=== PATIENT | male | born 1960 | race Caucasian/White ===

== ENCOUNTER → 2016-11-19 | Outpatient (CLI) | payer BC, OTHER ==
[~2016-11-19] MED LIST: ACT30 PO; ASPEC325 PO; ASPI325T45 PO; BACL10TA PO; BUPRTAB51 PO; CALCTAB7 PO; CLR10 PO; ESCI1TAB10 PO; HMLI SC; HYDR-3983 PO; HYDR-5688 PO; IBUP1CAP9 PO; INSU100I SQ; INSU1INJ33 SC; INSUINJ12 SC; KETO10TA PO; LOSA1TAB38 PO; LRS10 PO; MCLIN; MCLIN NAE; METF1000 PO; PANT1TAB48 PO; PRD5 PO; PRED-301 PO; PRED20TA PO; ROSU40TA PO; ZNF4 PO
--- NOTE | 2016-11-19 09:39 | DIAGNOSTIC IMAGING REPORT ---
LUMBAR SPINE 5 VIEWS HISTORY: LOWER BACK PAIN COMPARISON: None. FINDINGS: There is no fracture. No subluxation. Disc spaces are preserved. Dextroscoliosis which could be positional. A few small endplate osteophytes. Minimal anterior wedging at T12 and L1 which could be chronic. IMPRESSION: 1. Minimal degenerative changes. 2. Minimal anterior wedging at T12 and L1 which is likely chronic. No definite acute fracture or subluxation within the lumbar spine. Electronically signed by: Errol Vegas M.D. 11/19/2016 9:38 AM Dictated Date/Time: 11/19/2016 9:37 AM
== END | disposition home or self-care (01) ==
LOC: C.RADBC 09:09
PROVIDERS: ATTEND Nurse Practitioner Adult Health
DX: S39.012A Strain of muscle, fascia and tendon of lower back, initial encounter (principal); M89.8X8 Other specified disorders of bone, other site; X58.XXXA Exposure to other specified factors, initial encounter

== ENCOUNTER 2016-11-21 11:45 | Observation (INO) | payer OTHER ==
[~2016-11-21] VITALS: Ht 175.3 cm; Wt 106.0 kg
[~2016-11-21 11:45] MED LIST changes: -ASPI325T45 PO; -BACL10TA PO; -CALCTAB7 PO; -CLR10 PO; -HYDR-3983 PO; -HYDR-5688 PO; -IBUP1CAP9 PO; -INSU100I SQ; -INSU1INJ33 SC; -KETO10TA PO; -LRS10 PO; -MCLIN; -MCLIN NAE; -PRD5 PO; -PRED-301 PO; -ZNF4 PO
[2016-11-21] MEDS ORDERED: IBUP1CAP9 PO (12:00)
[2016-11-21] MEDS ORDERED: ASPI325T45 PO (12:00)
[2016-11-21] MEDS ORDERED: ZNF4 PO (12:01)
[2016-11-21] MEDS ORDERED: INSU100I SQ (12:01)
[2016-11-21] MEDS ORDERED: INSU1INJ33 SC (12:03)
[2016-11-21] MEDS ORDERED: MoRPHine SULFATE 10 MG/ML CARP/VIAL IM STA (12:10)
[2016-11-21] MEDS ORDERED: ONDANSETRON 4MG OD TAB PO ONE (12:15)
[2016-11-21] MEDS ORDERED: MoRPHine SULFATE 4 MG/ML 1 ML CARP\\VIAL IV STA (12:26)
--- NOTE | 2016-11-21 12:50 | EMERGENCY ROOM VISIT NOTE ---
History First contact with patient: 11:57 Chief Complaint: BACK PAIN Stated Complaint: SEVERE LOWER BACK PAIN History of Present Illness The patient is a 56 year old male who presents to the Emergency Room with complaints of low back pain. The patient states that 8 weeks ago he lifted a suitcase and felt pain in the low back. The patient states that his pain has progressively been worsening since then. The patient did physical therapy which initially helped but now seems to be making the pain worse. The patient states that on Monday he lifted something again and had significantly worsening pain. The patient has tried massage. He has seen the chiropractor. The patient states that he has to sleep on a chair because he cannot lay flat due to this significant pain. The patient has been taking prednisone. Initially, he had a short course of Vicodin which helped minimally. He rates his discomfort an 8/10. The patient has been missing work because of the significant pain and worsening symptoms. He does complain of pain rating to the right thigh. He denies any loss of bowel or bladder control. He denies any saddle anesthesia. He denies any weakness. He rates his discomfort an 8/ 10. Review of Systems A 10 system review of systems was completed with positives and pertinent negatives listed in the HPI. Past Medical/Surgical History Medical Problems: (1) chest pain rule out (2) Diabetes (3) Hyperlipemia (4) Hypertension (5) Lumbar compression fracture (6) Tobacco dependence in remission Family History FH: CAD (coronary artery disease) GERD Hypertension Stroke FATHER, Onset:50's - 60 Social History Smoking Status: Former Smoker Alcohol Use: occasionally Marital Status: Housing Status: lives with family Occupation Status: employed Current/Historical Medications Scheduled Aspirin (Aspirin), 1 TAB PO DAILY Bupropion (Wellbutrin-Xl), 300 MG PO QAM Escitalopram Oxalate (Lexapro), 20 MG PO QAM Ibuprofen (Ibuprofen), 800 MG PO TID Insulin Degludec (Tresiba Flextouch), 40 UNITS SC DAILY Insulin Lispro (Human) (Humalog), 0 SQ ACHS Losartan Potassium (Cozaar), 100 MG PO QAM Pantoprazole (Protonix), 40 MG PO QAM Prednisone (Prednisone), 60 MG PO QAM Rosuvastatin Calcium (Crestor), 40 MG PO QAM Tizanidine (Zanaflex ), 8 MG PO TID Physical Exam Vital Signs Date Time Temp Pulse Resp B/P (MAP) Pulse Ox O2 Delivery O2 Flow Rate FiO2 11/21/16 13:39 101 24 136/78 94 Room Air 11/21/16 11:51 37.1 92 20 166/83 94 Room Air Physical Exam VITALS: Vitals are noted on the nurse's note and reviewed by myself. Vital signs stable. The patient is afebrile. GENERAL: This is a 56-year-old male, in no acute distress, nondiaphoretic, well- developed well-nourished. SKIN: The skin was without rashes, erythema, edema, or bruising. There is no tenting of the skin. Capillary reflex less than 2 seconds. HEAD: Normocephalic atraumatic. EARS: External ears are normal in appearance EYES: Pupils equal round and reactive to light and accommodation. Conjunctivae without injection, sclerae without icterus. Extraocular movements intact. NOSE: Patent, turbinates without inflammation or discharge. MOUTH: Mucous membranes moist. Tonsils are not enlarged. Pharynx without erythema or exudate. Uvula midline. Airway patent. Tongue does not deviate. NECK: Supple without nuchal rigidity. No JVD. HEART: Regular rate and rhythm without murmurs gallops or rubs. LUNGS: Clear to auscultation bilaterally without wheezes, rales or rhonchi.. No retractions or accessory muscle use. ABDOMEN: Positive bowel sounds x 4. Soft, nontender. MUSCULOSKELETAL: No muscle atrophy, erythema, or edema noted. Full range of motion without joint tenderness in all extremities. No tenderness to palpation. Strength 5/5 throughout. NEURO: Patient was alert and oriented to person place and time. Normal sensation to light and sharp touch. Deep tendon reflexes 2+ throughout. No focal neurological deficits. Medical Decision & Procedures ER Provider Diagnostic Interpretation: LUMBAR SPINE W/O CONTRAST CLINICAL HISTORY: 56 years-old Male presenting with low back pain, radiation to right leg. TECHNIQUE: Multisequence, multiplanar MR imaging of the lumbar spine was performed without the use of intravenous contrast. IV contrast: None. COMPARISON: Plain radiographs of the lumbar spine from 11/19/2016. FINDINGS: Localizer images: Unremarkable. Normal lumbar lordosis. T1 hyperintense, T2 hyperintense bone marrow signal abnormality along the anterior aspects of the vertebral bodies primarily at L3-L5 consistent with fat, possibly indicating hemangiomas at these levels although the configuration is somewhat atypical. T2 hyperintense, T1 hypointense central lesion within the L3 vertebral body. Endplate concavity at L1 affecting the superior endplate to lesser degree than the inferior endplate. This results in a mild wedging deformity of L1. Bony edema also noted and L1 suggesting an acute compression deformity. No retropulsion of fracture fragments. Schmorl's node noted at the superior endplate of T12. The remaining levels demonstrate normal vertebral body height and alignment. Increased signal intensity within the intervertebral disc of L1 to, which may be reactive. Remaining intervertebral disc spaces preserved. No significant degenerative change. No neural foraminal or spinal canal narrowing. Spinal cord ends in good position at L1. Cauda equina normal in morphology. Paraspinal soft tissues within normal limits. IMPRESSION: 1. Acute compression fracture of L1. No retropulsion of fracture fragments. 2. No significant degenerative change. No neural foraminal or spinal canal stenosis. 3. Indeterminate lesion in the L3 vertebral body, possibly fat poor hemangioma. This would be better evaluated with intravenous contrast. Laboratory Results 11/21/16 12:30 Red Blood Count 4.44, Mean Corpuscular Volume 88.1, Mean Corpuscular Hemoglobin 29.5, Mean Corpuscular Hemoglobin Concent 33.5, Mean Platelet Volume 10.3, Neutrophils (%) (Auto) 88.0, Lymphocytes (%) (Auto) 7.4, Monocytes (%) (Auto) 2.4, Eosinophils (%) (Auto) 0.2, Basophils (%) (Auto) 0.2, Neutrophils # (Auto) 7.75, Lymphocytes # (Auto) 0.65, Monocytes # (Auto) 0.21, Eosinophils # (Auto) 0.02, Basophils # (Auto) 0.02 11/21/16 12:30 Test 11/21/16 12:30 11/21/16 13:43 White Blood Count 8.81 K/uL (4.8-10.8) Red Blood Count 4.44 M/uL (4.7-6.1) Hemoglobin 13.1 g/dL (14.0-18.0) Hematocrit 39.1 % (42-52) Mean Corpuscular Volume 88.1 fL (80-100) Mean Corpuscular Hemoglobin 29.5 pg (25-34) Mean Corpuscular Hemoglobin Concent 33.5 g/dl (32-36) Platelet Count 336 K/uL (130-400) Mean Platelet Volume 10.3 fL (7.4-10.4) Neutrophils (%) (Auto) 88.0 % Lymphocytes (%) (Auto) 7.4 % Monocytes (%) (Auto) 2.4 % Eosinophils (%) (Auto) 0.2 % Basophils (%) (Auto) 0.2 % Neutrophils # (Auto) 7.75 K/uL (1.4-6.5) Lymphocytes # (Auto) 0.65 K/uL (1.2-3.4) Monocytes # (Auto) 0.21 K/uL (0.11-0.59) Eosinophils # (Auto) 0.02 K/uL (0-0.5) Basophils # (Auto) 0.02 K/uL (0-0.2) RDW Standard Deviation 46.8 fL (36.4-46.3) RDW Coefficient of Variation 14.4 % (11.5-14.5) Immature Granulocyte % (Auto) 1.8 % Immature Granulocyte # (Auto) 0.16 K/uL (0.00-0.02) Anion Gap 10.0 mmol/L (3-11) Est Creatinine Clear Calc Drug Dose 133.8 ml/min Estimated GFR () 119.5 Estimated GFR (Non- 103.1 BUN/Creatinine Ratio 30.2 (10-20) Calcium Level 9.4 mg/dl (8.5-10.1) Total Bilirubin 0.3 mg/dl (0.2-1) Aspartate Amino Transf (AST/SGOT) 28 U/L (15-37) Alanine Aminotransferase (ALT/SGPT) 70 U/L (12-78) Alkaline Phosphatase 159 U/L (45-117) Total Protein 7.4 gm/dl (6.4-8.2) Albumin 3.7 gm/dl (3.4-5.0) Globulin 3.7 gm/dl (2.5-4.0) Albumin/Globulin Ratio 1.0 (0.9-2) Bedside Glucose 109 mg/dl (70-99) Medications Administered Medications (Trade) Dose Ordered Sig/Juan Route Start Time Stop Time Status Last Admin Dose Admin Morphine Sulfate (MoRPHine SULFATE INJ) 6 mg NOW STAT IM 11/21/16 12:10 11/21/16 12:12 DC 11/21/16 12:18 6 MG Ondansetron HCl (Zofran Odt) 4 mg ONE ONCE PO 11/21/16 12:15 11/21/16 12:16 DC 11/21/16 12:18 4 MG Morphine Sulfate (MoRPHine SULFATE INJ) 4 mg NOW STAT IV 11/21/16 12:26 11/21/16 12:27 DC 11/21/16 12:30 4 MG Hydromorphone HCl (Dilaudid Inj) 0.5 mg NOW STAT IV 11/21/16 13:50 11/21/16 13:51 DC 11/21/16 14:11 0.5 MG ED Course The patient was seen and examined. Previous visits were reviewed. The patient does not have a fever. The patient has had ongoing low back pain. He does have some radiation into the right thigh. The patient has tried customer care specialist, massage, physical therapy and NSAIDs, prednisone and Vicodin. Despite these treatments, the patient is having significantly worsening pain. He has been missing work. He has not been able to lie flat to sleep and has been sleeping in a chair. The patient does not have fever or leukocytosis. Given the acute worsening of his symptoms, MRI of the lumbar spine was obtained as above. There is acute compression fracture of L1. There is also question of hemangioma to L3. I discussed the case with Dr. Ruiz who can see the patient in consultation later tonight or tomorrow morning. He recommends admission to the medical service. The patient was given multiple doses of IV narcotics. The patient's pain was still very persistent. Given the worsening of the symptoms, the interference with activities of daily living and the fact that the pain is refractory to IV narcotics, he would benefit from further evaluation and management in the hospital. The case was discussed with the [facility] and the hospitalist service and they will evaluate the patient. The case was discussed with Dr. Daniels who agrees with the assessment and treatment plan. Medical Decision DIFFERENTIAL DIAGNOSIS: Lumbar strain, degenerative disc disease, spondylolisthesis, herniated disc, spinal stenosis, osteoporosis, fracture, cauda equina syndrome, neoplasm, infection, inflammatory arthritis, among others. Medication Reconcilliation Current Medication List: was personally reviewed by me Blood Pressure Screening Patient's blood pressure: Elevated blood pressure Blood pressure disposition: Elevated BP felt to be situational Impression Primary Impression: Lumbar compression fracture Additional Impression: Intractable back pain Departure Information Referrals Kathie Loo CRNP (PCP) Patient Instructions My [facility] Problem Qualifiers Primary Impression: Lumbar compression fracture Encounter type: initial encounter Lumbar vertebra fracture level: L1 Fracture type: closed Qualified Codes: S32.010A - Wedge compression fracture of first lumbar vertebra, initial encounter for closed fracture
[2016-11-21 12:58] LABS: BASO % 0.2 %; BASO ABS # 0.02 K/uL (0-0.2); COMPLETE YES; EOS % 0.2 %; HEMATOCRIT 39.1 % (42-52); IG% 1.8 %; LYMPH % 7.4 %; LYMPH ABS # 0.65 K/uL (1.2-3.4); MEAN CELL VOLUME 88.1 fL (80-100); MEAN CORPUSCULAR HEMOGLOBIN 29.5 pg (25-34); MEAN CORPUSCULAR HGB CONC 33.5 g/dl (32-36); MEAN PLATELET VOLUME 10.3 fL (7.4-10.4); MONO % 2.4 %; PLATELET COUNT 336 K/uL (130-400); RED BLOOD COUNT 4.44 M/uL (4.7-6.1); WHITE BLOOD COUNT 8.81 K/uL (4.8-10.8)
[2016-11-21 13:21] LABS: BUN/CREATININE RATIO 30.2 (10-20); CALCIUM 9.4 mg/dl (8.5-10.1); CREATININE 0.74 mg/dl (0.60-1.40); POTASSIUM 3.6 mmol/L (3.5-5.1)
--- NOTE | 2016-11-21 13:26 | DIAGNOSTIC IMAGING REPORT ---
LUMBAR SPINE W/O CONTRAST CLINICAL HISTORY: 56 years-old Male presenting with low back pain, radiation to right leg. TECHNIQUE: Multisequence, multiplanar MR imaging of the lumbar spine was performed without the use of intravenous contrast. IV contrast: None. COMPARISON: Plain radiographs of the lumbar spine from 11/19/2016. FINDINGS: Localizer images: Unremarkable. Normal lumbar lordosis. T1 hyperintense, T2 hyperintense bone marrow signal abnormality along the anterior aspects of the vertebral bodies primarily at L3-L5 consistent with fat, possibly indicating hemangiomas at these levels although the configuration is somewhat atypical. T2 hyperintense, T1 hypointense central lesion within the L3 vertebral body. Endplate concavity at L1 affecting the superior endplate to lesser degree than the inferior endplate. This results in a mild wedging deformity of L1. Bony edema also noted and L1 suggesting an acute compression deformity. No retropulsion of fracture fragments. Schmorl's node noted at the superior endplate of T12. The remaining levels demonstrate normal vertebral body height and alignment. Increased signal intensity within the intervertebral disc of L1 to, which may be reactive. Remaining intervertebral disc spaces preserved. No significant degenerative change. No neural foraminal or spinal canal narrowing. Spinal cord ends in good position at L1. Cauda equina normal in morphology. Paraspinal soft tissues within normal limits. IMPRESSION: 1. Acute compression fracture of L1. No retropulsion of fracture fragments. 2. No significant degenerative change. No neural foraminal or spinal canal stenosis. 3. Indeterminate lesion in the L3 vertebral body, possibly fat poor hemangioma. This would be better evaluated with intravenous contrast. Electronically signed by: Roberto Gustafson M.D. 11/21/2016 1:24 PM Dictated Date/Time: 11/21/2016 1:15 PM
[2016-11-21] MEDS ORDERED: HYDROmorphone INJ 0.5 MG/0.5 ML SYR IV STA (13:50)
[2016-11-21] MEDS ORDERED: ACETAMINOPHEN 325 MG TAB PO PRN (15:00)
[2016-11-21] MEDS ORDERED: ZOLPIDEM TARTRATE 5 MG TAB PO PRN (15:00)
[2016-11-21] MEDS ORDERED: GLUCOSE 40% GEL 15 GM TUBE PO PRN (15:15)
[2016-11-21] MEDS ORDERED: IV FLUIDS COMPLETED PRN (15:15)
[2016-11-21] MEDS ORDERED: DEXTROSE 50% 50 ML SYR IV PRN (15:15)
[2016-11-21] MEDS ORDERED: GLUCOSE 10 TABS/TUBE PO PRN (15:15)
[2016-11-21] MEDS ORDERED: GLUCAGON FOR INJ 1 MG VIAL SQ PRN (15:15)
[2016-11-21] MEDS: HYDROmorphone INJ 0.5 MG/0.5 ML SYR IV PRN ×3 (15:31→23:48)
--- NOTE | 2016-11-21 15:33 | History and Physical ---
History & Physical Date & Time of Service: Nov 21, 2016 at 15:09 Chief Complaint: Severe Lower Back Pain Primary Care Physician: Kathie Loo CRNP History of Present Illness Source: patient The patient is a 56-year-old male who has had progressively worsening lumbar pain since injuring his back lifting a suitcase approximately 8 weeks ago. He did undergo physical therapy which initially helped but now seems to be making the pain worse. 2 days ago he lifted an object And the Pain Significantly Worsened. He has tried Massage, visited the Chiropractor and recently has to sit up in a chair as it is too painful to lay backwards to sleep. He has not had any loss of bladder or bowel control, has not had any weakness or tingling in lower extremities, he does occasionally feel some pain radiating to his right thigh. Past Medical/Surgical History Medical Problems: (1) Diabetes Status: Chronic (2) Hyperlipemia Status: Chronic (3) Hypertension Status: Chronic (4) Tobacco dependence in remission Status: Chronic Family History FH: CAD (coronary artery disease) GERD Hypertension Stroke FATHER, Onset:50's - 60 Social History Smoking Status: Former Smoker Smokeless Tobacco Use: No Alcohol Use: none Drug Use: none Marital Status: Housing status: lives with family Occupational Status: employed Immunizations History of Influenza Vaccine: Yes Influenza Vaccine Date: Dec 10, 2006 History of Tetanus Vaccine?: Yes Tetanus Immunization Date: Dec 10, 1998 History of Pneumococcal: Yes History of Hepatitis B Vaccine: Yes Multi-Drug Resistant Organisms History of MDRO: No Allergies Coded Allergies: Latex1 -Allergic Contact Dermititis (Verified Allergy, Intermediate, ITCHY , 10/20/15) NO KNOWN DRUG ALLERGIES (Verified Allergy, Unknown, ., 10/20/15) Home Medications Scheduled Aspirin (Aspirin), 1 TAB PO DAILY Bupropion (Wellbutrin-Xl), 300 MG PO QAM Escitalopram Oxalate (Lexapro), 20 MG PO QAM Ibuprofen (Ibuprofen), 800 MG PO TID Insulin Degludec (Tresiba Flextouch), 40 UNITS SC DAILY Insulin Lispro (Human) (Humalog), 0 SQ ACHS Losartan Potassium (Cozaar), 100 MG PO QAM Pantoprazole (Protonix), 40 MG PO QAM Prednisone (Prednisone), 60 MG PO QAM Rosuvastatin Calcium (Crestor), 40 MG PO QAM Tizanidine (Zanaflex ), 8 MG PO TID Review of Systems The patient denies chest pain, palpitations, shortness of breath, cough, lower extremity swelling, vision change, hearing change, sore throat, fevers, chills, sweats, weight change, fatigue, nausea, vomiting, diarrhea or constipation, abdominal pain, pelvic pain, blood in urine or stool, dysuria, urinary frequency or urgency, lightheadedness, dizziness, headache, memory loss, rash, abnormal bruising or bleeding, imbalance, focal or generalized weakness, numbness or tingling in arms, generalized arthralgias or myalgias, neck pain, night sweats, or allergy symptoms. The review of systems is otherwise negative other than for that already noted above, and at least 10 systems have been reviewed. Physical Exam Vital Signs Date Time Temp Pulse Resp B/P (MAP) Pulse Ox O2 Delivery O2 Flow Rate FiO2 11/21/16 13:39 101 24 136/78 94 Room Air 11/21/16 11:51 37.1 92 20 166/83 94 Room Air The patient is awake, well-developed and adequately nourished, alert and oriented 3, normocephalic and atraumatic, lying in bed and in no acute distress. HEENT--PERRL, EOMI, mucous membranes and oropharynx normal. Neck--supple, no JVD or bruits, thyroid normal, trachea midline, no adenopathy. Heart--normal S1 and S2, no extra beats, no murmurs, rubs or gallops. Lungs--clear bilaterally with good air movement, no respiratory distress, no accessory muscle use. Abdomen--normal bowel sounds and soft, nontender and nondistended, no hernias or masses, no organomegaly and obese. Extremities--no cyanosis, clubbing or edema. There are good distal pulses b/l. Dermatologic--normal skin turgor, normal color, warm and dry, no abnormal lymph nodes, no rash. Neurologic--cranial nerves II through XII grossly intact, motor and sensory examination normal. Rheumatologic--paraspinal muscle spasm bilaterally lumbar disc area. Mild diffuse for pain over L1. Psychiatric--normal affect. Diagnostics Laboratory Results Results Past 24 Hours Test 11/21/16 12:30 Range/Units White Blood Count 8.81 4.8-10.8 K/uL Red Blood Count 4.44 4.7-6.1 M/uL Hemoglobin 13.1 14.0-18.0 g/dL Hematocrit 39.1 42-52 % Mean Corpuscular Volume 88.1 80-100 fL Mean Corpuscular Hemoglobin 29.5 25-34 pg Mean Corpuscular Hemoglobin Concent 33.5 32-36 g/dl Platelet Count 336 130-400 K/uL Mean Platelet Volume 10.3 7.4-10.4 fL Neutrophils (%) (Auto) 88.0 % Lymphocytes (%) (Auto) 7.4 % Monocytes (%) (Auto) 2.4 % Eosinophils (%) (Auto) 0.2 % Basophils (%) (Auto) 0.2 % Neutrophils # (Auto) 7.75 1.4-6.5 K/uL Lymphocytes # (Auto) 0.65 1.2-3.4 K/uL Monocytes # (Auto) 0.21 0.11-0.59 K/uL Eosinophils # (Auto) 0.02 0-0.5 K/uL Basophils # (Auto) 0.02 0-0.2 K/uL RDW Standard Deviation 46.8 36.4-46.3 fL RDW Coefficient of Variation 14.4 11.5-14.5 % Immature Granulocyte % (Auto) 1.8 % Immature Granulocyte # (Auto) 0.16 0.00-0.02 K/uL Sodium Level 141 136-145 mmol/L Potassium Level 3.6 3.5-5.1 mmol/L Chloride Level 106 98-107 mmol/L Carbon Dioxide Level 25 21-32 mmol/L Anion Gap 10.0 3-11 mmol/L Blood Urea Nitrogen 22 7-18 mg/dl Creatinine 0.74 0.60-1.40 mg/dl Est Creatinine Clear Calc Drug Dose 133.8 ml/min Estimated GFR () 119.5 Estimated GFR (Non- 103.1 BUN/Creatinine Ratio 30.2 10-20 Random Glucose 113 70-99 mg/dl Calcium Level 9.4 8.5-10.1 mg/dl Total Bilirubin 0.3 0.2-1 mg/dl Aspartate Amino Transf (AST/SGOT) 28 15-37 U/L Alanine Aminotransferase (ALT/SGPT) 70 12-78 U/L Alkaline Phosphatase 159 45-117 U/L Total Protein 7.4 6.4-8.2 gm/dl Albumin 3.7 3.4-5.0 gm/dl Globulin 3.7 2.5-4.0 gm/dl Albumin/Globulin Ratio 1.0 0.9-2 Diagnostic Radiology Patient Name: SUE MEHTA Unit Number: [id number] Dictated: 11/21/161314 Transcribed: 11/21/161314 PBS Printed Date/Time: [~ rep prt dt]/[~ rep prt tm] [~ rep ct labl] - [~ rep ct ivnm] [place] [address] Dictated: 11/21/161314 Transcribed: 11/21/161314 PBS Printed Date/Time: [~ rep prt dt]/[~ rep prt tm] [~ rep ct labl] - [~ rep ct ivnm] LUMBAR SPINE W/O CONTRAST CLINICAL HISTORY: 56 years-old Male presenting with low back pain, radiation to right leg. TECHNIQUE: Multisequence, multiplanar MR imaging of the lumbar spine was performed without the use of intravenous contrast. IV contrast: None. COMPARISON: Plain radiographs of the lumbar spine from 11/19/2016. FINDINGS: Localizer images: Unremarkable. Normal lumbar lordosis. T1 hyperintense, T2 hyperintense bone marrow signal abnormality along the anterior aspects of the vertebral bodies primarily at L3-L5 consistent with fat, possibly indicating hemangiomas at these levels although the configuration is somewhat atypical. T2 hyperintense, T1 hypointense central lesion within the L3 vertebral body. Endplate concavity at L1 affecting the superior endplate to lesser degree than the inferior endplate. This results in a mild wedging deformity of L1. Bony edema also noted and L1 suggesting an acute compression deformity. No retropulsion of fracture fragments. Schmorl's node noted at the superior endplate of T12. The remaining levels demonstrate normal vertebral body height and alignment. Increased signal intensity within the intervertebral disc of L1 to, which may be reactive. Remaining intervertebral disc spaces preserved. No significant degenerative change. No neural foraminal or spinal canal narrowing. Spinal cord ends in good position at L1. Cauda equina normal in morphology. Paraspinal soft tissues within normal limits. IMPRESSION: 1. Acute compression fracture of L1. No retropulsion of fracture fragments. 2. No significant degenerative change. No neural foraminal or spinal canal stenosis. 3. Indeterminate lesion in the L3 vertebral body, possibly fat poor hemangioma. This would be better evaluated with intravenous contrast. Electronically signed by: Roberto Gustafson M.D. 11/21/2016 1:24 PM Dictated Date/Time: 11/21/2016 1:15 PM The status of this report is Signed. Draft = Not yet reviewed or approved by Radiologist. Signed = Reviewed and approved by Radiologist. <AttendingPhy></AttendingPhy> <FamilyPhy>Kathie Loo CRNP</FamilyPhy> < PrimaryPhy>Kathie Loo CRNP</PrimaryPhy> <UnitNumber>[id number]</ UnitNumber> <VisitNumber>[id number]</VisitNumber> <PatientName>SUE MEHTA< /PatientName> <DateOfBirth>1960</DateOfBirth> <Location>[facility]</Location> < ServiceDate>11/21/16</ServiceDate> <MNE>ESINDI</MNE> <OrderingPhy>Anne Kern PA-C</OrderingPhy> <OrderingPhyMNE>f rep ord dr aguila</OrderingPhyMNE > <DictatingPhyMNE>f rep dict dr aguila</DictatingPhyMNE> <CCListMNE>f rep ct mingo</ CCListMNE> <AdmittingPhyMNE>f pt admit dr aguila</AdmittingPhyMNE> <AttendingPhyMNE >f pt attend dr aguila</AttendingPhyMNE> <ConsultingPhyMNE>f pt consult dr aguila</ConsultingPhyMNE> <FamilyPhyMNE>f pt fam dr aguila</FamilyPhyMNE> <OtherPhyMNE>f pt other dr aguila</OtherPhyMNE> < PrimaryPhyMNE>f pt prim care dr aguila</PrimaryPhyMNE> <ReferringPhyMNE>f pt referring dr aguila</ReferringPhyMNE> Impression Assessment and Plan Acute L1 compression fracture with indeterminate L3 lesion-- Admitted to the medical surgical floor. Tylenol 650 mg by mouth every 6 hours when necessary mild pain or temperature. [place] 7/325 one by mouth every 4 hours when necessary moderate pain. Dilaudid 0.5 mg IV every 2 hours when necessary severe pain. Consult Dr. Latif from pain management Consult Dr. Ruiz from orthopedic surgery. Hold Tizanidine a milligrams by mouth 3 times a day when necessary due to excessive sedation. Hold oral prednisone. We'll try to avoid IV Solu-Medrol as well since these fractures are likely associated with steroid use. Trial of baclofen 20 mg by mouth 3 times a day. Diabetes mellitus-- Changed Tresiba to Lantus insulin and decreased dosing for 40-[address] on Accu-Cheks before meals and at bedtime with NovoLog coverage per scale. Hypertension--continue aspirin 81 mg by mouth daily, losartan potassium 100 mg by mouth every morning. Depression--continue Wellbutrin XL 3 mg by mouth every morning and Lexapro 20 mg by mouth every morning. GERD--continue Protonix 40 mg by mouth every morning. Hyperlipidemia--continue rosuvastatin 40 mg by mouth every morning. Level of Care Med/Surg Advanced Directives Existing Advance Directive: No Existing Living Will: No Existing Power of Service Writer Advisor: No Resuscitation Status FULL RESUSCITATION VTE Prophylaxis VTE Risk Assessment Done? Y/N: Yes Risk Level: Moderate Given or contraindicated: SCD's Social Service Consult None Apply
[2016-11-21 15:36] VITALS: O2SAT 95
[2016-11-21 16:05] VITALS: BP 161/81; PULSE 109; TEMP 36.7; O2SAT 96; Ht 175.3 cm; Wt 106.0 kg
[2016-11-21] MEDS: HYDROCODONE/ACETAMINOPHEN 7.5/325MG TAB PO PRN ×2 (16:57→21:13)
[2016-11-21] MEDS ORDERED: GADAVIST IV PRN (17:45)
--- NOTE | 2016-11-21 17:56 | DIAGNOSTIC IMAGING REPORT ---
LUMBAR SPINE COMBINATION HISTORY: Back pain abnormal previous MRI TECHNIQUE: Multiplanar multisequence MRI of the lumbar spine was performed both before and after the intravenous administration of contrast. COMPARISON: Unenhanced MRI lumbar spine same date FINDINGS: For the purpose of the report the L5-S1 disc space will be located on axial image of 30. Findings of an L1 compression fracture again noted. There is a moderate compression deformity of T11 is also noted. 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 No additional postcontrast enhancement is identified. IMPRESSION: 1. Enhanced images demonstrate the small focus of diminished signal at L3 to represent a benign hemangioma/bone cavernoma. 2. Compression deformity L1 again noted and appears similar. 3. Current images also demonstrate a moderate compression deformity of T11. 4. No compromise of the spinal canal. The above report was generated using voice recognition software. It may contain grammatical, syntax or spelling errors. Electronically signed by: Red Alberto M.D. 11/21/2016 5:55 PM Dictated Date/Time: 11/21/2016 5:50 PM
[2016-11-21] MEDS: INSULIN ASPART 100 UNITS/ML 3 ML PEN SC SCH ×2 (19:02→20:26)
[2016-11-21] MEDS: BACLOFEN TAB 20 MG TAB PO SCH (20:27)
[2016-11-21 20:37] VITALS: BP 138/84; PULSE 100; TEMP 36.7; O2SAT 96
[2016-11-21 23:02] VITALS: BP 143/87; PULSE 94; TEMP 36.6; O2SAT 99
[2016-11-22] MEDS: ONDANSETRON INJ 2 MG/ML 2 ML VIAL IV PRN ×2 (00:57→12:32)
[2016-11-22] MEDS: HYDROCODONE/ACETAMINOPHEN 7.5/325MG TAB PO PRN ×2 (01:19→05:23)
[2016-11-22 06:58] VITALS: BP 143/83; PULSE 90; TEMP 36.8; O2SAT 97
[2016-11-22 07:39] LABS: BASO % 0.2 %; BASO ABS # 0.02 K/uL (0-0.2); COMPLETE YES; EOS % 1.2 %; HEMATOCRIT 37.6 % (42-52); IG% 1.7 %; LYMPH % 25.7 %; LYMPH ABS # 2.42 K/uL (1.2-3.4); MEAN CELL VOLUME 88.9 fL (80-100); MEAN CORPUSCULAR HEMOGLOBIN 29.3 pg (25-34); MEAN PLATELET VOLUME 9.9 fL (7.4-10.4); MONO % 8.5 %; NEUT % 62.7 %; PLATELET COUNT 307 K/uL (130-400); RED BLOOD COUNT 4.23 M/uL (4.7-6.1)
[2016-11-22 07:51] LABS: INR 0.9 (0.9-1.1)
[2016-11-22 08:16] LABS: ALT/SGPT 54 U/L (12-78); AST/SGOT 18 U/L (15-37); BLOOD UREA NITROGEN 20 mg/dl (7-18); BUN/CREATININE RATIO 24.5 (10-20); CALCIUM 9.4 mg/dl (8.5-10.1); CARBON DIOXIDE 30 mmol/L (21-32); CHLORIDE 102 mmol/L (98-107); GLUCOSE 168 mg/dl (70-99); MAGNESIUM 2.1 mg/dl (1.8-2.4); POTASSIUM 3.2 mmol/L (3.5-5.1); SODIUM 140 mmol/L (136-145)
[2016-11-22 08:18] LABS: ALKALINE PHOSPHATASE 136 U/L (45-117)
--- NOTE | 2016-11-22 09:21 | CONSULTATION REPORT ---
DATE OF CONSULTATION: 11/22/2016 CHIEF COMPLAINT: Back pain. WORKING DIAGNOSIS: Osteoporotic compression fracture. HISTORY OF PRESENT ILLNESS: Calvin is a delightful young gentleman, he is 56. He lifted a suitcase approximately 8 weeks ago, did improve a few weeks earlier, then today lifted again a heavy object, had significant increase in pain. This was approximately 2 weeks ago. Tried some medication, chiropractic maneuvers and anti-inflammatories, and the pain worsened. He came to the Emergency Room yesterday, 11/21/2016, pain significant, need to be admitted. I was consulted because of his compression fracture. MEDICAL HISTORY: Diabetes, hyperlipidemia, hypertension. FAMILY HISTORY: Coronary artery disease. SOCIAL HISTORY: Former smoker. No alcohol use or drug use. 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 MEDICATIONS: Reviewed including aspirin, Wellbutrin, Lexapro, ibuprofen, Humalog, Cozaar, Protonix, prednisone 60 mg every day. EXAMINATION: NEUROLOGIC: Intact. SKIN/INTEGUMENTARY: Intact. Good vascularity. BACK: Pain with percussion, pain on lumbar spine, more in the thoracolumbar junction. ABDOMEN: Soft, nontender. IMAGES: Reviewed, demonstrating an osteoporotic compression fracture of the L1 vertebra. He also has, in my opinion, a possibility of compression fracture at the T11 vertebra of the thoracolumbar junction, age indeterminate. There is no retropulsion, there is no high-grade instability and there is no high-grade collapse. IMPRESSION: 1. Two compression fracture of thoracolumbar spine, looked to be rather acute, the L1 being the worst issue without retropulsion or stenosis. DISPOSITION: In the short run which is the next few days, we are going to treat him conservatively. I will get him fitted for a brace for support. We did introduce him the concept of the kyphoplasty or vertebroplasty procedure which is cement augmentation procedure. These would be very easy to access with that procedure, so we will consider that down the road if he does not improve. In the long run, he needs metabolic bone management. We need to somehow get him off the prednisone if at all possible. He will need some bone supplements in addition to calcium. He will need some other agents to try to improve his bone density in my opinion. In the short run, once again we will get him fitted with a brace, I will watch him closely and hopefully getting him home I would estimate tomorrow, 11/23/2016.
[2016-11-22] MEDS ORDERED: POTASSIUM CHLORIDE 10 MEQ TABCR PO ONE (09:30)
[2016-11-22] MEDS: INSULIN ASPART 100 UNITS/ML 3 ML PEN SC SCH ×4 (09:38→20:59)
[2016-11-22] MEDS: INSULIN GLARGINE SOLOSTAR 100 UNITS/ML 3 ML PEN SC SCH (09:40)
[2016-11-22] MEDS: TAPENTADOL HCL 50 MG TAB PO PRN ×3 (09:40→20:05)
[2016-11-22] MEDS: LOSARTAN POTASSIUM 50 MG TAB PO SCH (09:41)
[2016-11-22] MEDS: BACLOFEN TAB 20 MG TAB PO SCH ×3 (09:41→20:43)
[2016-11-22] MEDS: ESCITALOPRAM OXALATE 20 MG TAB PO SCH (09:41)
[2016-11-22] MEDS: PANTOprazole SOD 40 MG TAB PO SCH (09:42)
[2016-11-22] MEDS: BuPROPion XL 300 MG TABCR PO SCH (09:42)
[2016-11-22] MEDS: ROSUVASTATIN CALCIUM 20 MG TAB PO SCH (09:42)
[2016-11-22] MEDS: HYDROmorphone INJ 0.5 MG/0.5 ML SYR IV PRN ×3 (09:45→20:04)
[2016-11-22] MEDS ORDERED: ONDANSETRON INJ 2 MG/ML 2 ML VIAL IV PRN (10:15)
--- NOTE | 2016-11-22 10:33 | Pain Management Consultation ---
Pain Management Consultation Date of Consultation Nov 22, 2016. Reason for Consultation Acute low back pain with discovery of T11 and L1 compression deformities Pain Location 1 - History Mr. Ramos is a 56-year-old male who was admitted with progressive worsening of axial low back pain. The patient reported initial onset of axial low back pain approximately 2 months ago which occurred while lifting a heavy suitcase. His symptoms progressively improved through conservative management with NSAIDs and physical therapy. The patient then reported another lifting episode over this past weekend which significantly exacerbated his symptoms. He indicates his pain is 100% axial in the lumbosacral region without a radicular component. He was reporting some radiation to the lower abdomen. His symptoms are aggravated with positional change and lying supine. He denies any falls or known injuries other than reported above. He has no personal history of osteoporosis and denies a family history of osteoporosis. The patient denies bowel or bladder incontinence, weaknesses in the lower extremities, footdrop or falling. He denies paresthesias. He does report chronic use of oral prednisone in attempt to control allergies. He typically uses 20-25 mg daily for chronic duration. Patient denies change in bowel habits. He denies saddle anesthesias and has no further constitutional complains. Plan of care discussed with Dr. Norma Bond. Past Medical/Surgical History (1) Steroid dependence (2) chest pain rule out (3) Intractable back pain (4) Lumbar compression fracture (5) Hypertension (6) Diabetes (7) Hyperlipemia (8) Tobacco dependence in remission Family History FH: CAD (coronary artery disease) GERD Hypertension Stroke FATHER, Onset:50's - 60 Family Hx Review: history personally reviewed by me Social / Work History Smoking Status: Former smoker Smokeless Tobacco Use: No Alcohol Use: none Drug Use: none Marital Status: Housing Status: lives with family Occupation: employed Allergies Coded Allergies: Latex1 -Allergic Contact Dermititis (Verified Allergy, Intermediate, ITCHY , 10/20/15) NO KNOWN DRUG ALLERGIES (Verified Allergy, Unknown, ., 10/20/15) Medications Current Inpatient Medications Medications (Trade) Dose Ordered Sig/Juan Route Start Time Stop Time Status Last Admin Dose Admin Acetaminophen (Tylenol Tab) 650 mg Q4H PRN PO 11/21/16 15:00 12/21/16 14:59 Zolpidem Tartrate (Ambien Tab) 5 mg HSZ PRN PO 11/21/16 15:00 12/21/16 14:59 Bupropion HCl (Wellbutrin-Xl Tab) 300 mg QAM PO 11/22/16 09:00 12/22/16 08:59 11/22/16 09:42 300 MG Escitalopram Oxalate (Lexapro Tab) 20 mg QAM PO 11/22/16 09:00 12/22/16 08:59 11/22/16 09:41 20 MG Losartan Potassium (coZAAR TAB) 100 mg QAM PO 11/22/16 09:00 12/22/16 08:59 11/22/16 09:41 100 MG Pantoprazole Sodium (Protonix Tab) 40 mg QAM PO 11/22/16 09:00 12/22/16 08:59 11/22/16 09:42 40 MG Rosuvastatin Calcium (Crestor Tab) 40 mg QAM PO 11/22/16 09:00 12/22/16 08:59 11/22/16 09:42 40 MG Ondansetron HCl (Zofran Inj) 4 mg Q6H PRN IV 11/21/16 15:15 12/21/16 15:14 11/22/16 00:57 4 MG Insulin Aspart (novoLOG ASPART) SLIDING SCALE If C... ACHS SC 11/21/16 16:00 12/21/16 15:59 11/22/16 09:38 7 UNITS Glucose (Glucose 40% Gel) UD PRN PO 11/21/16 15:15 12/21/16 15:14 Glucose (Glucose Chew Tab) 1 tabs UD PRN PO 11/21/16 15:15 12/21/16 15:14 Dextrose (Dextrose 50% 50ML Syringe) 50 ml UD PRN IV 11/21/16 15:15 12/21/16 15:14 Glucagon (Glucagon Inj) 1 mg UD PRN SQ 11/21/16 15:15 12/21/16 15:14 Hydromorphone HCl (Dilaudid Inj) 0.5 mg Q2H PRN IV 11/21/16 15:15 12/05/16 15:14 11/22/16 09:45 0.5 MG Baclofen (Lioresal Tab) 20 mg TID PO 11/21/16 21:00 12/21/16 20:59 11/22/16 09:41 20 MG Insulin Glargine (Lantus Solostar Pen) 30 units DAILY SC 11/22/16 09:00 12/22/16 08:59 11/22/16 09:40 30 UNITS Miscellaneous (Iv Fluids Completed) 1 ea PRN PRN N/A 11/21/16 15:15 11/21/17 15:14 Gadobutrol (Gadavist) 10.5 mmol UD PRN IV 11/21/16 17:45 11/25/16 17:44 Tapentadol (Nucynta Tab) 50 mg Q4H PRN PO 11/22/16 09:00 12/22/16 08:59 11/22/16 09:40 50 MG Review of Systems Patient denies complaints related to cardiac, pulmonary, GI, , endocrine, neurologic, hepatic, renal, ENT, dermatologic or musculoskeletal other than those described above in history of present illness. Physical Exam Height & Weight: Height 5 feet, 9.00 inches. Weight 106.000 (Kilograms) 233 (Pounds) Last Vital Signs Documentation Date Time Temp Pulse Resp B/P (MAP) Pulse Ox O2 Delivery O2 Flow Rate FiO2 11/22/16 06:58 36.8 90 20 143/83 (103) 97 Room Air Exam: Gen.: Patient sitting quietly upon entering the room in no acute distress. Speech and thought process appropriate. Mood and affect appropriate. Cognition intact. Patient is overweight and physically deconditioned state. Back/spine: Patient is tender over the midline at palpation percussion of the upper lumbar spine. He has no focal facet joint tenderness provocative testing. Patient is tender in the paravertebral lumbar musculature with spasm. He is tender over the quadratus lumborum with minimal spasm appreciated traveling towards the iliac crest bilaterally. Range of motion is limited secondary to body habitus. Lower extremities: SLR increased left-sided axial back pain, negative SLR on the right. No radicular component appreciated. Strength testing 5/5 and equal. Increased axial pain with resisted hip flexion and extension maneuvering left greater than right-sided. Nontender over the greater trochanter. Sensation intact without deficits. No evidence of edema in the ankle and pretibial locations. Neurologic: Patient is able to transfer from sitting to standing position. Laboratory Laboratory Results (Last CBC): 11/22/16 07:02 Red Blood Count 4.23 L, Mean Corpuscular Volume 88.9, Mean Corpuscular Hemoglobin 29.3, Mean Corpuscular Hemoglobin Concent 33.0, Mean Platelet Volume 9.9, Neutrophils (%) (Auto) 62.7, Lymphocytes (%) (Auto) 25.7, Monocytes (%) ( Auto) 8.5, Eosinophils (%) (Auto) 1.2, Basophils (%) (Auto) 0.2, Neutrophils # ( Auto) 5.89, Lymphocytes # (Auto) 2.42, Monocytes # (Auto) 0.80 H, Eosinophils # (Auto) 0.11, Basophils # (Auto) 0.02 Imaging MRI: enhanced, non enhanced, reports reviewed MRI Findings Patient: SUE RAMOS Address1: [address] [place] [address] Rec: [id number] Address2: Acct ID: [id number] [facility] Zip: [place] [address] Date: 1960 Sex: M Room/Bed: [facility] Ref Phy: Kathie Loo CRNP SC: GerardoMSN Att Phy: Berry Stock M.D. Report #: [id number] Michelle Phy: Kathie Loo CRNP Test: LSCO Admit Phy: Berry Stock M.D. Analyst [employer]ing: PRINCESS Interpreting Phy: Red Alberto M.D. Diagnosis: LUMBAR COMPRESSION FRACTURE Ordering Phy: Berry Stock M.D. Service Date: 11/21/16 Admit Date: 11/21/1708/25/17 MNE: [id number] CONF: DICTATED BY: Red Alberto M.D.]] CC: Kathie Loo CRNP Pasquariello, Rick D M.D. Endcc: [~ rep ct add3]] LUMBAR SPINE COMBINATION HISTORY: Back pain abnormal previous MRI TECHNIQUE: Multiplanar multisequence MRI of the lumbar spine was performed both before and after the intravenous administration of contrast. COMPARISON: Unenhanced MRI lumbar spine same date FINDINGS: For the purpose of the report the L5-S1 disc space will be located on axial image 27 of 30. Findings of an L1 compression fracture again noted. There is a moderate compression deformity of T11 is also noted. 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 No additional postcontrast enhancement is identified. IMPRESSION: 1. Enhanced images demonstrate the small focus of diminished signal at L3 to represent a benign hemangioma/bone cavernoma. 2. Compression deformity L1 again noted and appears similar. 3. Current images also demonstrate a moderate compression deformity of T11. 4. No compromise of the spinal canal. The above report was generated using voice recognition software. It may contain grammatical, syntax or spelling errors. Electronically signed by: Red Alberto M.D. 11/21/2016 5:55 PM Dictated Date/Time: 11/21/2016 5:50 PM The status of this report is Signed. Draft = Not yet reviewed or approved by Radiologist. Signed = Reviewed and approved by Radiologist. Past Records Previous Records: personally reviewed by me Assessment 1. T11 and L1 compression fracture-likely acute without retropulsion 2. Myofascial pain with spasm 3. History of chronic steroid dependency 4. Depressive disorder Recommendations 1. Patient was recently seen by Dr. Ruiz who is initiating a brace and conservative management. Kyphoplasty was discussed by Dr. Ruiz as well as myself as a viable treatment option moving forward should he fail to respond to conservative therapy. 2. Will transition the patient from hydrocodone to Nucynta 50 mg every 4 hours on apparent basis for breakthrough pain to assess efficacy and tolerability. Drug-drug interactions were reviewed. 3. Maintain baclofen at 20 mg 3 times a day 4. Patient was encouraged to undergo bone density screening in the outpatient setting as well as vitamin D 25 OH to evaluate for premature osteoporosis due to his chronic steroid dependency to determine whether treated with bisphosphonate is recommended. 5. Will continue to follow at this time
--- NOTE | 2016-11-22 11:54 | Hospitalist Progress Note ---
Hospitalist Progress Note Date of Service Nov 22, 2016. (Stephanie Pham .ANDRZEJ) Subjective Pt evaluation today including: conversation w/ patient, physical exam, chart review, lab review, review of studies, conversation w/ cycle consultant, review of inpatient medication list Voiding: no voiding problems Dr. Ramos continues to have muscle spasms at the site of his fracture as well as pain though it has improved somewhat since coming to the hospital. He denies numbness, pain or weakness in his lower extremities. He denies loss of control over bowel or bladder. Constitutional: No fever, No chills Respiratory: No shortness of breath Cardiovascular: No chest pain Abdomen: + nausea, No pain, No vomiting, No diarrhea, No constipation Musculoskeletal: + see HPI All Other Systems: Reviewed and Negative (Stephanie Pham CRNP) Medications Medications (Trade) Dose Ordered Sig/Juan Route Start Time Stop Time Status Last Admin Dose Admin Morphine Sulfate (MoRPHine SULFATE INJ) 6 mg NOW STAT IM 11/21/16 12:10 11/21/16 12:12 DC 11/21/16 12:18 6 MG Ondansetron HCl (Zofran Odt) 4 mg ONE ONCE PO 11/21/16 12:15 11/21/16 12:16 DC 11/21/16 12:18 4 MG Morphine Sulfate (MoRPHine SULFATE INJ) 4 mg NOW STAT IV 11/21/16 12:26 11/21/16 12:27 DC 11/21/16 12:30 4 MG Hydromorphone HCl (Dilaudid Inj) 0.5 mg NOW STAT IV 11/21/16 13:50 11/21/16 13:51 DC 11/21/16 14:11 0.5 MG Bupropion HCl (Wellbutrin-Xl Tab) 300 mg QAM PO 11/22/16 09:00 12/22/16 08:59 11/22/16 09:42 300 MG Escitalopram Oxalate (Lexapro Tab) 20 mg QAM PO 11/22/16 09:00 12/22/16 08:59 11/22/16 09:41 20 MG Losartan Potassium (coZAAR TAB) 100 mg QAM PO 11/22/16 09:00 12/22/16 08:59 11/22/16 09:41 100 MG Pantoprazole Sodium (Protonix Tab) 40 mg QAM PO 11/22/16 09:00 12/22/16 08:59 11/22/16 09:42 40 MG Rosuvastatin Calcium (Crestor Tab) 40 mg QAM PO 11/22/16 09:00 12/22/16 08:59 11/22/16 09:42 40 MG Ondansetron HCl (Zofran Inj) 4 mg Q6H PRN IV 11/21/16 15:15 12/21/16 15:14 11/22/16 00:57 4 MG Insulin Aspart (novoLOG ASPART) SLIDING SCALE If C... ACHS SC 11/21/16 16:00 12/21/16 15:59 11/22/16 09:38 7 UNITS Hydromorphone HCl (Dilaudid Inj) 0.5 mg Q2H PRN IV 11/21/16 15:15 12/05/16 15:14 11/22/16 09:45 0.5 MG Baclofen (Lioresal Tab) 20 mg TID PO 11/21/16 21:00 12/21/16 20:59 11/22/16 09:41 20 MG Insulin Glargine (Lantus Solostar Pen) 30 units DAILY SC 11/22/16 09:00 12/22/16 08:59 11/22/16 09:40 30 UNITS Acetaminophen/ Hydrocodone Bitart ([place] 7.5/325 Tab) 1 tab Q4H PRN PO 11/21/16 16:45 11/22/16 08:49 DC 11/22/16 05:23 1 TAB Potassium Chloride (Klor-Con M10) 40 meq TODAY@0930 ONCE PO 11/22/16 09:30 11/22/16 09:31 DC 11/22/16 09:43 40 MEQ Tapentadol (Nucynta Tab) 50 mg Q4H PRN PO 11/22/16 09:00 12/22/16 08:59 11/22/16 09:40 50 MG (Stephanie Pham, NET MANAGER) Objective Vital Signs Date Time Temp Pulse Resp B/P (MAP) Pulse Ox O2 Delivery O2 Flow Rate FiO2 11/22/16 07:45 Room Air 11/22/16 06:58 36.8 90 20 143/83 (103) 97 Room Air 11/21/16 23:44 Room Air 11/21/16 23:02 36.6 94 16 143/87 (105) 99 Room Air 11/21/16 20:37 36.7 100 18 138/84 (102) 96 Room Air 11/21/16 16:05 36.7 109 18 161/81 Room Air 11/21/16 16:05 36.7 109 18 161/81 (107) 96 Room Air 11/21/16 15:36 107 21 138/79 95 Room Air 11/21/16 13:39 101 24 136/78 94 Room Air 11/21/16 11:51 37.1 92 20 166/83 94 Room Air (Stephanie Pham CRNP) Physical Exam Notes: General: no distress Eyes: normal inspection, PERLL Respiratory: chest non tender, clear to auscultation, normal breath sounds, no respiratory distress, no accessory muscle use Cardiac: regular rate and rhythm, no rub or gallop, no murmur, no edema, no jvd GI/: active bowel sounds, no abd pain or tenderness, soft, non distended Extremities: normal range of motion, normal strength bilaterally, tender to palpation over T11/L1 spine Neuro/Psych: alert and oriented x 3, normal mood and affect Skin: normal color, dry (Stephanie Pham CRNP) Laboratory Results Last 24 Hours Test 11/21/16 12:30 11/21/16 13:43 11/21/16 17:07 11/21/16 20:02 White Blood Count 8.81 K/uL Red Blood Count 4.44 M/uL Hemoglobin 13.1 g/dL Hematocrit 39.1 % Mean Corpuscular Volume 88.1 fL Mean Corpuscular Hemoglobin 29.5 pg Mean Corpuscular Hemoglobin Concent 33.5 g/dl Platelet Count 336 K/uL Mean Platelet Volume 10.3 fL Neutrophils (%) (Auto) 88.0 % Lymphocytes (%) (Auto) 7.4 % Monocytes (%) (Auto) 2.4 % Eosinophils (%) (Auto) 0.2 % Basophils (%) (Auto) 0.2 % Neutrophils # (Auto) 7.75 K/uL Lymphocytes # (Auto) 0.65 K/uL Monocytes # (Auto) 0.21 K/uL Eosinophils # (Auto) 0.02 K/uL Basophils # (Auto) 0.02 K/uL RDW Standard Deviation 46.8 fL RDW Coefficient of Variation 14.4 % Immature Granulocyte % (Auto) 1.8 % Immature Granulocyte # (Auto) 0.16 K/uL Sodium Level 141 mmol/L Potassium Level 3.6 mmol/L Chloride Level 106 mmol/L Carbon Dioxide Level 25 mmol/L Anion Gap 10.0 mmol/L Blood Urea Nitrogen 22 mg/dl Creatinine 0.74 mg/dl Est Creatinine Clear Calc Drug Dose 133.8 ml/min Estimated GFR () 119.5 Estimated GFR (Non- 103.1 BUN/Creatinine Ratio 30.2 Random Glucose 113 mg/dl Calcium Level 9.4 mg/dl Total Bilirubin 0.3 mg/dl Aspartate Amino Transf (AST/SGOT) 28 U/L Alanine Aminotransferase (ALT/SGPT) 70 U/L Alkaline Phosphatase 159 U/L Total Protein 7.4 gm/dl Albumin 3.7 gm/dl Globulin 3.7 gm/dl Albumin/Globulin Ratio 1.0 Hepatitis C Antibody Screen NEG Bedside Glucose 109 mg/dl 296 mg/dl 290 mg/dl Test 11/22/16 07:02 11/22/16 08:13 11/22/16 10:47 White Blood Count 9.40 K/uL Red Blood Count 4.23 M/uL Hemoglobin 12.4 g/dL Hematocrit 37.6 % Mean Corpuscular Volume 88.9 fL Mean Corpuscular Hemoglobin 29.3 pg Mean Corpuscular Hemoglobin Concent 33.0 g/dl Platelet Count 307 K/uL Mean Platelet Volume 9.9 fL Neutrophils (%) (Auto) 62.7 % Lymphocytes (%) (Auto) 25.7 % Monocytes (%) (Auto) 8.5 % Eosinophils (%) (Auto) 1.2 % Basophils (%) (Auto) 0.2 % Neutrophils # (Auto) 5.89 K/uL Lymphocytes # (Auto) 2.42 K/uL Monocytes # (Auto) 0.80 K/uL Eosinophils # (Auto) 0.11 K/uL Basophils # (Auto) 0.02 K/uL RDW Standard Deviation 47.4 fL RDW Coefficient of Variation 14.6 % Immature Granulocyte % (Auto) 1.7 % Immature Granulocyte # (Auto) 0.16 K/uL Prothrombin Time 10.0 SECONDS Prothromb Time International Ratio 0.9 Activated Partial Thromboplast Time 25.4 SECONDS Partial Thromboplastin Ratio 1.0 Sodium Level 140 mmol/L Potassium Level 3.2 mmol/L Chloride Level 102 mmol/L Carbon Dioxide Level 30 mmol/L Anion Gap 8.0 mmol/L Blood Urea Nitrogen 20 mg/dl Creatinine 0.80 mg/dl Est Creatinine Clear Calc Drug Dose 123.7 ml/min Estimated GFR () 115.7 Estimated GFR (Non- 99.9 BUN/Creatinine Ratio 24.5 Random Glucose 168 mg/dl Calcium Level 9.4 mg/dl Magnesium Level 2.1 mg/dl Total Bilirubin 0.5 mg/dl Direct Bilirubin < 0.1 mg/dl Aspartate Amino Transf (AST/SGOT) 18 U/L Alanine Aminotransferase (ALT/SGPT) 54 U/L Alkaline Phosphatase 136 U/L Total Protein 6.7 gm/dl Albumin 3.5 gm/dl Bedside Glucose 155 mg/dl (Stephanie Pham ., ANDRZEJ) Assessment and Plan Dr. 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 Compression fracture L1 vertebra - Dr. Ruiz evaluated patient and surgery is on hold for now but is possible for the near future, brace ordered for now. Pain control by pain management, started Nucynta today. Discussed persistent muscle spasms with Zachery Lock PA-C from pain management who felt that the Nucynta should be given a chance to work before adding another medication for spasms as Baclofen is already on board. PT ordered. He will need to have a bone density scan outpatient and be evaluated for adding bisphosphates. Calcitonin nasal spray ordered for pain, he can be switched to a more effective bisphosphinate after the Dexa scan and when his pain is better controlled. Will check vitamin D level, start calcium and vitamin D supplement. Chronic prednisone use with adrenal insufficiency - Dr. Ramos has been taking chronic steroids for quite some time, initially for allergies to animals. His allergies have improved but he has not been able to taper off of prednisone as he feels symptoms of adrenal insufficiency whenever he drops below 20 mg daily. He has been taking up to 60 mg at times since injuring his spine. Twenty five mg po ordered for today as he says this is his normal daily dose and will start a very slow taper to wean him off of the prednisone. Hypokalemia - replaced with 40 mEq PO Diabetes - continue accuchecks AC/HS and sliding scale novolog and Lantus. Code status: full resuscitation DVT prophylaxis: SCDs (Stephanie Pham ., ANDRZEJ) Attending Attestation: Pt seen/examined, chart reviewed, care plan d/w PA Stephanie Pham. I agree w/ the cisneros components of her documentation. Pt with ongoing lumbar back pain - midline and also paraspinal. Explained to me his chronic usage of prednisone - initially for chronic dog/cat allergies, then had difficulty weaning off such. Takes typically 20-25mg/day chronically. No prior h/o osteoporosis. VSS no fever gen - nad, obese heart - RRR lungs - CTA b/l abd - soft, NT back - tender to palpation over lumbar spine, midline, at t-spine/l-spine junction A/P: 1. acute T11/L1 compression fractures, likely osteoporotic in origin appreciate pain management, orthopedics, and orthotics consultations agree with current pain meds; agree with brace; add calcitonin nasal spray outpatient DEXA vitamin D level pending 2. chronic prednisone usage for allergies - recommend referral to allergy/ pulmonary for consideration of allergy shots/IT then hopefully can wean off prednisone over next 6-12 months 3. uncontrolled T2DM - adjust novolog scale updated observe overnight; hopefully home tomorrow Raji Manrique MD (Raji Manrique MD)
[2016-11-22 15:08] VITALS: BP 145/88; PULSE 93; TEMP 36.7; O2SAT 95
[2016-11-22] MEDS: CALCIUM 600MG + VIT D 400 IU TAB PO SCH (20:43)
[2016-11-22 23:00] VITALS: BP 135/88; PULSE 92; TEMP 36.8; O2SAT 97
[2016-11-23] MEDS: TAPENTADOL HCL 50 MG TAB PO PRN (00:06)
[2016-11-23 07:24] VITALS: BP_SYST 154; BP_SYST 164; BP_DIAS 102; BP_DIAS 121; PULSE 92; TEMP 36.8; O2SAT 98
--- NOTE | 2016-11-23 07:30 | PROGRESS NOTE ---
DATE: 11/23/2016 SUBJECTIVE: Moderate complaints of pain; still quite significant. He is fitted well with a brace for support and it helps somewhat, not perfectly. Pain control has been a little bit of an issue, but he is working through that as well. He is neurologically intact. OBJECTIVE: Vital signs stable, afebrile. ASSESSMENT: Compression fractures of the thoracolumbar spine. Osteoporosis. Chronic steroid use. Other medical problems. DISPOSITION: Hopefully he will be discharged home today. I have asked him to get to the office tomorrow with [facility] in the afternoon. He may be possibly a good candidate for the kyphoplasty procedure to alleviate his pain. He has some issues of course getting back to work and this might expedite his recovery. He should be calling the office [phone] for an appointment tomorrow afternoon.
[2016-11-23] MEDS: HYDROmorphone INJ 0.5 MG/0.5 ML SYR IV PRN (07:34)
[2016-11-23] MEDS: ONDANSETRON INJ 2 MG/ML 2 ML VIAL IV PRN (07:34)
[2016-11-23 07:48] VITALS: BP 158/99; PULSE 94
[2016-11-23] MEDS ORDERED: HYDROCODONE/ACETAMINOPHEN 7.5/325MG TAB PO PRN (08:15)
[2016-11-23] MEDS ORDERED: KETOROLAC TROMETHAMINE 30 MG/ML VIAL IV PRN (08:15)
[2016-11-23 08:25] LABS: BUN/CREATININE RATIO 24.3 (10-20); CALCIUM 10.1 mg/dl (8.5-10.1); CREATININE 0.89 mg/dl (0.60-1.40); POTASSIUM 3.6 mmol/L (3.5-5.1)
[2016-11-23] MEDS ORDERED: CALCITONIN SALMON NA 200 IU/AC 3.7 ML BTL SCH (09:00)
--- NOTE | 2016-11-23 09:24 | Pain Management Progress Note ---
Pain Management Progress Note Date of Service Nov 23, 2016. Subjective Mr. Ramos is reporting difficulty tolerating Nucynta due to sedation. He utilizes Nucynta multiple times throughout the day yesterday. He is unable to report improved pain control with this medication when compared to hydrocodone. He like to discuss resume hydrocodone for breakthrough pain. He is finding the baclofen to be moderately effective without sedation. He continues to report axial back pain in the lumbar region traveling towards the iliac crest and occasionally the lateral lower abdominal locations. Symptoms are quiescent in the sitting position but aggravated with positional change and ambulating. He continues to deny radicular pattern to his pain, bowel or bladder incontinence, saddle anesthesias or other constitutional complaints. Plan of care discussed with Dr. Norma Bond. Objective Vital Signs: Last Vital Signs Documentation Date Time Temp Pulse Resp B/P (MAP) Pulse Ox O2 Delivery O2 Flow Rate FiO2 11/23/16 07:48 94 158/99 (118) 11/23/16 07:24 36.8 19 98 Room Air Physical Exam: General: Patient sitting quietly in exam room in no acute distress with a lumbar support brace intact and K pad. Speech and thought process appropriate. Mood and affect appropriate. Cognition intact. Back/spine: Loss of lordosis. Patient tender over the midline in the thoracolumbar junction. Patient tender in the paravertebral musculature in the thoracolumbar junction. Tender over the quadratus lumborum bilaterally left greater than right-sided. Scattered spasm without evidence of myoneural trigger points. Range of motion limited in all planes. Lower extremities: SLR negative bilaterally. Hamstring tightness appreciative bilaterally. Sensation intact without deficit. Neurologic: Patient able to stand from a sitting position with slow deliberate movements. Ambulatory function not witnessed. Patient was able to stand without assistance. Laboratory Laboratory Findings 11/22/16 07:02 Red Blood Count 4.23 L, Mean Corpuscular Volume 88.9, Mean Corpuscular Hemoglobin 29.3, Mean Corpuscular Hemoglobin Concent 33.0, Mean Platelet Volume 9.9, Neutrophils (%) (Auto) 62.7, Lymphocytes (%) (Auto) 25.7, Monocytes (%) ( Auto) 8.5, Eosinophils (%) (Auto) 1.2, Basophils (%) (Auto) 0.2, Neutrophils # ( Auto) 5.89, Lymphocytes # (Auto) 2.42, Monocytes # (Auto) 0.80 H, Eosinophils # (Auto) 0.11, Basophils # (Auto) 0.02 Assessment 1. T11 and L1 acute compression fractures 2. Myofascial pain 3. History of chronic steroid dependency 4. Depressive disorder Recommendations 1. Will discontinue Nucynta and resume hydrocodone 7.5/325 one tablet by mouth every 4 hours when necessary for breakthrough pain 2. Will initiate Toradol 30 mg IV every 6 hours when necessary 3. Maintain baclofen at 20 mg 3 times a day 4. Patient will follow up with Dr. Ruiz in the outpatient setting to discuss pursuing kyphoplasty 5. Recommendation was again made for him to obtain bone density screening in the outpatient setting as well as vitamin D measurement
[2016-11-23] MEDS ORDERED: BACLOFEN 10 MG TAB PO PRN (10:00)
[2016-11-23] MEDS: ESCITALOPRAM OXALATE 20 MG TAB PO SCH (10:06)
[2016-11-23] MEDS: PANTOprazole SOD 40 MG TAB PO SCH (10:06)
[2016-11-23] MEDS: LOSARTAN POTASSIUM 50 MG TAB PO SCH (10:06)
[2016-11-23] MEDS: CALCIUM 600MG + VIT D 400 IU TAB PO SCH (10:07)
[2016-11-23] MEDS: BuPROPion XL 300 MG TABCR PO SCH (10:08)
[2016-11-23] MEDS: ROSUVASTATIN CALCIUM 20 MG TAB PO SCH (10:08)
[2016-11-23] MEDS: INSULIN GLARGINE SOLOSTAR 100 UNITS/ML 3 ML PEN SC SCH (10:12)
[2016-11-23] MEDS: INSULIN ASPART 100 UNITS/ML 3 ML PEN SC SCH (10:13)
[2016-11-23] MEDS ORDERED: HYDR-3983 PO ×2 (12:40→12:49)
[2016-11-23] MEDS ORDERED: MCLIN (12:40)
[2016-11-23] MEDS ORDERED: LRS10 PO (12:40)
[2016-11-23] MEDS ORDERED: CALCTAB7 PO (12:40)
[2016-11-23] MEDS ORDERED: PRD5 PO (12:40)
--- NOTE | 2016-11-23 12:59 | Discharge Instructions ---
Discharge Instructions Date of Service Nov 23, 2016. Admission Reason for Admission: Lumbar Compression Fracture Discharge Discharge Diagnosis / Problem: lumbar compression fracture Discharge Goals Goal(s): Decrease discomfort, Improve function Activity Recommendations Activity Limitations: resume your previous activity Exercise/Sports Limitations: as tolerated . Instructions / Follow-Up Instructions / Follow-Up Please follow up with your primary care doctor to start a slow prednisone taper after your surgery. Current Hospital Diet Patient's current hospital diet: Diabetes Type 2 Diet Discharge Diet Recommended Diet: Diabetes Type 2 Diet Procedures Procedures Performed: Lumbar Spine MRI Pending Studies Studies pending at discharge: no Medical Emergencies . Who to Call and When: Medical Emergencies: If at any time you feel your situation is an emergency, please call 911 immediately. . Non-Emergent Contact Non-Emergency issues call your: Primary Care Provider Call Non-Emergent contact if: your pain is not controlled, your pain is worsening, your pain is unusual for you, your pain is concerning you or you have numbness in your pelvic area or loss of bowel or bladder . Past History Medical & Surgical History: (1) Intractable back pain (2) Lumbar compression fracture (3) Spasm of back muscles (4) Adrenal insufficiency (5) Steroid dependence (6) Diabetes . "Provider Documentation" section prepared by Stephanie Pham. Attending Attestation: pt seen/examined, and discharge care plan d/w ANDRZEJ Pham. I agree w/ the cisneros components of her discharge instructions. Raji Manrique MD . VTE Core Measure Inpt VTE Proph given/why not?: SCD's
[2016-11-23 13:17] VITALS: BP 158/99; PULSE 94; TEMP 36.8; O2SAT 98
--- NOTE | 2016-11-23 13:38 | Discharge Summary ---
Discharge Summary Date of Service Nov 23, 2016. (Stephanie Pham CRNP) Discharge Summary Admission Date: Nov 21, 2016 at 14:59 Discharge Date: Nov 23, 2016 Discharge Disposition: Home Principal Diagnosis: lumbar compression fracture Problems/Secondary Diagnoses: adrenal insufficiency due to chronic steroid use Immunizations: Have You Had Influenza Vaccine: Yes Influenza Vaccine Date: Dec 10, 2006 History of Tetanus Vaccine?: Yes Tetanus Immunization Date: Dec 10, 1998 History of Pneumococcal: Yes History of Hepatitis B Vaccine: Yes Procedures: Lumbar CT IMPRESSION: 1. Acute compression fracture of L1. No retropulsion of fracture fragments. 2. No significant degenerative change. No neural foraminal or spinal canal stenosis. 3. Indeterminate lesion in the L3 vertebral body, possibly fat poor hemangioma. This would be better evaluated with intravenous contrast. Lumbar CT IMPRESSION: 1. Enhanced images demonstrate the small focus of diminished signal at L3 to represent a benign hemangioma/bone cavernoma. 2. Compression deformity L1 again noted and appears similar. 3. Current images also demonstrate a moderate compression deformity of T11. 4. No compromise of the spinal canal. Consultations: Dr. Ruiz from ortho Pain management (Stephanie Pham CRNP) Discharge Exam Review of Systems: Respiratory: No sputum, No shortness of breath Cardiovascular: No chest pain, No palpitations Abdomen: No nausea, No vomiting, No diarrhea Musculoskeletal: + muscle pain (spasms around fracture) Genitourinary - Female: No dysuria Genitourinary - Male: No urinary retention, No urinary incontinence Neurologic: No numbness/tingling Physical Exam: General Appearance: WD/WN, no apparent distress Eyes: normal inspection Respiratory/Chest: chest non-tender, lungs clear, normal breath sounds, no respiratory distress, no accessory muscle use Cardiovascular: no edema, no gallop, no JVD, no murmur, normal peripheral pulses, + extra beats Abdomen / GI: normal bowel sounds, non tender, soft Extremities: normal inspection, + pertinent finding (tenderness to palpation over lumbar spine) Neurologic/Psychiatric: no motor/sensory deficits, alert, normal mood/affect , oriented x 3 Skin: normal color, warm/dry (Stephanie Pham CRNP) Hospital Course (1) Intractable back pain (2) Steroid dependence (3) Adrenal insufficiency (4) Spasm of back muscles (5) Lumbar compression fracture (6) Hypertension (7) Diabetes Dr. 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 Compression fracture L1 vertebra - Dr. Ruiz evaluated patient and is considering surgery for Monday. He has a brace ordered for now. Pain control by pain management, started Nucynta yesterday but was not tolerated, switched back to [place]. PT ordered. He will need to have a bone density scan outpatient and be evaluated for adding bisphosphates. Calcitonin nasal spray ordered for pain, he can be switched to a more effective bisphosphinate after the Dexa scan and when his pain is better controlled. Vitamin D level was low normal, calcium and vitamin D supplements initiated. Chronic prednisone use with adrenal insufficiency - Dr. Ramos has been taking chronic steroids for quite some time, initially for allergies to animals. His allergies have improved but he has not been able to taper off of prednisone as he feels symptoms of adrenal insufficiency whenever he drops below 20 mg daily. He has been taking up to 60 mg at times since injuring his spine. Twenty five mg po daily while inpatient as he says this is his normal daily dose. He should begin a very slow taper to wean him off of the prednisone after surgery. Diabetes - continue accuchecks AC/HS and sliding scale novolog and Lantus. Code status: full resuscitation DVT prophylaxis: SCDs Dr. 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 Compression fracture L1 vertebra - Dr. Ruiz evaluated patient and surgery is on hold for now but is possible for the near future, brace ordered for now. Pain control by pain management, started Nucynta today. Discussed persistent muscle spasms with Zachery Lock PA-C from pain management who felt that the Nucynta should be given a chance to work before adding another medication for spasms as Baclofen is already on board. PT ordered. He will need to have a bone density scan outpatient and be evaluated for adding bisphosphates. Calcitonin nasal spray ordered for pain, he can be switched to a more effective bisphosphinate after the Dexa scan and when his pain is better controlled. Will check vitamin D level, start calcium and vitamin D supplement. Chronic prednisone use with adrenal insufficiency - Dr. Ramos has been taking chronic steroids for quite some time, initially for allergies to animals. His allergies have improved but he has not been able to taper off of prednisone as he feels symptoms of adrenal insufficiency whenever he drops below 20 mg daily. He has been taking up to 60 mg at times since injuring his spine. Twenty five mg po ordered for today as he says this is his normal daily dose and will start a very slow taper to wean him off of the prednisone. Hypokalemia - replaced with 40 mEq PO Diabetes - continue accuchecks AC/HS and sliding scale novolog and Lantus. Code status: full resuscitation DVT prophylaxis: SCDs Total Time Spent: Greater than 30 minutes This includes examination of the patient, discharge planning, medication reconciliation, and communication with other providers. (Stephanie Pham .ANDRZEJ) Attending Discharge Note & Attestation: Pt seen/examined, chart reviewed, discharge care plan d/w ANDRZEJ Pham. I agree w/ the cisneros components of her discharge summary. 56yo male with chronic steroid use, T2DM, and HTN who presented with severe back pain. Found to have T11 and L1 compression fractures. He likely has undiagnosed osteoporosis in the setting of chronic prednisone usage. Treated with IV/PO pain meds, muscle relaxers, anti-inflammatories, steroids, and calcitonin nasal spray. Seen by orthopedics - conservative Rx recommended at least initially. Seen by orthotics - back brace ordered and delivered to patient. Seen by PT - cleared for home. Discharge exam: gen - nad, obese neck - no JVD heart - extra beats, o/w RR, s1, s2 lungs - CTA b/l abd - soft, obese ext - no edema neuro - strength b/l LEs 5/5 back - brace in place f/u has been established with orthopedics as well as for DEXA scan. He has been using oral prednisone for years initially due to chronic allergies. I recommended referral to pulmonary or allergy for allergy testing and ultimately allergy shots. Then his prednisone can hopefully be weaned off over several months. Raji Manrique MD (Raji Manrique MD) Discharge Instructions Please refer to the electronic Patient Visit Report (Discharge Instructions) for additional information. (Stephanie Pham .ANDRZEJ) Follow-Up 1. Dr. Kermit Ruiz - orthopedics - MondayNovember 29 at 1:10pm 2. DEXA SCAN - December 15 at 8:00am 3. Dr. Norma Bond - pain management - MondayDecember 06 at 9:00am (Raji Manrique MD) Additional Copies To Norma Bond DO; Kathie Loo CRNP; Kermit Ruiz DO Problem Qualifiers (1) Lumbar compression fracture: Encounter type: initial encounter Lumbar vertebra fracture level: L1 Fracture type: closed Qualified Codes: S32.010A - Wedge compression fracture of first lumbar vertebra, initial encounter for closed fracture
[2016-11-24] MEDS ORDERED: PRED-301 PO (16:42)
[2016-11-24] MEDS ORDERED: HYDR-3983 PO (16:48)
[2016-11-24] MEDS ORDERED: BACL10TA PO (16:48)
[2016-11-24] MEDS ORDERED: CLR10 PO (16:48)
[2016-11-24] MEDS ORDERED: MCLIN NAE (16:50)
== END 2016-11-23 13:45 | disposition home or self-care (01) ==
LOC: C.EDB 11:46 → C.MSN 14:59 → EDBEDREQSVC 15:02 → CANRESERV 15:23 → ENRESERV 15:23
PROVIDERS: ADMIT Hospitalist; ATTEND Internal Medicine
DX: M80.08XA Age-related osteoporosis with current pathological fracture, vertebra(e), initial encounter for fracture (principal); E11.9 Type 2 diabetes mellitus without complications; E27.3 Drug-induced adrenocortical insufficiency; T38.0X5A Adverse effect of glucocorticoids and synthetic analogues, initial encounter; E78.5 Hyperlipidemia, unspecified; E87.6 Hypokalemia; K21.9 Gastro-esophageal reflux disease without esophagitis; I10 Essential (primary) hypertension; F17.201 Nicotine dependence, unspecified, in remission; Z82.49 Family history of ischemic heart disease and other diseases of the circulatory system; Z82.3 Family history of stroke; Z79.82 Long term (current) use of aspirin; Z79.899 Other long term (current) drug therapy; Z79.4 Long term (current) use of insulin; Z79.52 Long term (current) use of systemic steroids

== ENCOUNTER 2016-11-28 10:04 | Day surgery (SDC) | payer OTHER ==
[2016-11-24 16:17] VITALS: BMI 34.0
[~2016-11-28] VITALS: Ht 175.3 cm; Wt 104.5 kg
[~2016-11-28 10:04] MED LIST changes: -ACT30 PO; -ASPEC325 PO; +ASPI325T45 PO; +BACL10TA PO; +CALCTAB7 PO; +CEFAZOLIN 2000 MG/60 ML D5W 60 ML IV SCH; +CLR10 PO; -HMLI SC; +HYDR-3983 PO; +IBUP1CAP9 PO; +INSU100I SQ; +INSU1INJ33 SC; -INSUINJ12 SC; +LACTATED RINGER'S 1000ML 1,000 ML IV SCH; +LACTATED RINGER'S 1000ML IV SCH; +MCLIN NAE; -METF1000 PO; +PRED-301 PO; -PRED20TA PO
[2016-11-28 11:13] VITALS: BP 161/97; PULSE 98; TEMP 36.9; O2SAT 98; Ht 175.3 cm; Wt 104.5 kg
[2016-11-28] MEDS ORDERED: ATROPINE SULFATE 0.1 MG/ML 5ML SYR IV PRN (12:00)
[2016-11-28] MEDS ORDERED: ALBUTEROL 0.083% NEBU SOLN 3 ML VIAL INH PRN (12:00)
[2016-11-28] MEDS ORDERED: ONDANSETRON INJ 2 MG/ML 2 ML VIAL IV PRN ×2 (12:00→14:15)
--- NOTE | 2016-11-28 12:11 | History and Physical ---
History & Physical Date Nov 28, 2016. Chief Complaint Back pain History of Present Illness The patient is a 56 year old male with complaints of severe back pain Past Medical/Surgical History Medical Problems: (1) Adrenal insufficiency (2) chest pain rule out (3) Diabetes (4) Hyperlipemia (5) Hypertension (6) Lumbar compression fracture (7) Spasm of back muscles (8) Steroid dependence (9) Tobacco dependence in remission Additional History Hepatic Disease: No Endocrine Disorder: Yes Kidney Disease: No Hypertension: Yes Heart Disease: No Bleeding Tendencies: No Infectious Diseases: No Other: Steroid dependence Allergies Coded Allergies: Latex1 -Allergic Contact Dermititis (Verified Allergy, Intermediate, ITCHY , 11/28/16) NO KNOWN DRUG ALLERGIES (Verified Allergy, Unknown, ., 11/28/16) Home Medications Scheduled Aspirin (Aspirin), 1 TAB PO QAM Bupropion (Wellbutrin-Xl), 300 MG PO QAM Calcitonin Larsen (Calcitonin-[place]), 1 SPRAY ROSALINDA QAM Calcium Carbonate-Vitamin D W/ (Caltrate 600 Plus), 1 TAB PO BID Escitalopram Oxalate (Lexapro), 20 MG PO QAM Insulin Degludec (Tresiba Flextouch), 40 UNITS SC DAILY Insulin Lispro (Human) (Humalog), 0 SQ ACHS Loratadine (Claritin), 10 MG PO QAM Losartan Potassium (Cozaar), 100 MG PO QAM Pantoprazole (Protonix), 40 MG PO QAM Prednisone (Prednisone), 25 MG PO QAM Rosuvastatin Calcium (Crestor), 40 MG PO QAM Scheduled PRN Baclofen (Lioresal), 20 MG PO BID PRN for RN Hydrocodone/Acetaminophen 7.5MG/325MG ([place] 7.5MG/325MG), 1 TAB PO Q4H PRN for N Ibuprofen (Ibuprofen), 600 MG PO TID PRN for PRN Physical Examination Skin: warm/dry Eyes: normal inspection ENT: normal ENT inspection Head: normocephalic Neck: supple Respiratory/Chest: lungs clear Cardiovascular: regular rate, rhythm Abdomen / GI: normal bowel sounds Back: normal inspection Extremities: normal inspection Genitourinary - Male: normal male genitalia Neurologic/Psych: no motor/sensory deficits Diagnosis Compression fracture T11 and L1 ASA Classification: ASA Class III (kyphoplasty T11 and L1)
[2016-11-28] MEDS ORDERED: BUPIVACAINE/EPINEPHRINE 0.5% MPF 1:200,000 30 ML VIAL ONE ×2 (12:15→12:26)
[2016-11-28] MEDS ORDERED: CONRAY 60% 50 ML VIAL ONE (12:15)
[2016-11-28] MEDS ORDERED: PROPOFOL IV EMULSION 10 MG/ML 20 ML VIAL IV ONE ×2 (12:17→13:09)
[2016-11-28] MEDS ORDERED: ROCURONIUM BROMIDE 10 MG/ML 5 ML VIAL IV ONE ×2 (12:17→13:28)
[2016-11-28] MEDS ORDERED: GLYCOPYRROLATE INJ 0.2 MG/ML VIAL ONE (12:17)
[2016-11-28] MEDS ORDERED: LIDOCAINE HCL 2% 2 ML VIAL (20MG/ML) ONE (12:17)
[2016-11-28] MEDS ORDERED: SUCCINYLCHOLINE CHLORIDE 20 MG/ML 10 ML VIAL IV ONE (12:17)
[2016-11-28] MEDS ORDERED: FENTANYL CITRATE INJ 50 MCG/1 ML 2 ML VIAL ONE (12:17)
[2016-11-28] MEDS ORDERED: MIDAZOLAM HCL 1 MG/ML 2ML VIAL ONE (12:17)
[2016-11-28] MEDS ORDERED: DEXAMETHASONE SOD INJ 4 MG/ML VIAL ONE (12:17)
[2016-11-28] MEDS ORDERED: NEOSTIGMINE METHYLSULFATE 5 MG/5 ML SYR ONE (12:17)
[2016-11-28] MEDS ORDERED: EpHEDrine SULFATE INJ 50 MG/ML AMP ONE (12:17)
[2016-11-28] MEDS ORDERED: PHENYLEPHRINE HCL INJ 10 MG/ML VIAL ONE (12:17)
[2016-11-28] MEDS ORDERED: ONDANSETRON INJ 2 MG/ML 2 ML VIAL ONE (12:17)
[2016-11-28] MEDS ORDERED: HYDROCORTISONE SOD SUCCINATE 100 MG/2 ML VIAL ONE (13:09)
[2016-11-28] MEDS ORDERED: ALBUTEROL HFA INHALER 8.5 GM INH ONE (13:10)
[2016-11-28] MEDS ORDERED: OXYCODONE/ACETAMINOPHEN 5-325 TAB PO PRN ×2 (14:15)
[2016-11-28] MEDS ORDERED: SODIUM CHLORIDE 0.9% 1000ML 1,000 ML IV SCH (14:15)
--- NOTE | 2016-11-28 14:18 | Discharge Instructions ---
Discharge Instructions Date of Service Nov 28, 2016. Admission Reason for Admission: Compression Fracture T11 & L1 Discharge Discharge Diagnosis / Problem: SAME ABOVE Discharge Goals Goal(s): Decrease discomfort, Improve function Activity Recommendations Activity Limitations: as noted below Lifting Limitations: until after follow-up appointment Exercise/Sports Limitations: until after follow-up appointment Shower/Bathe: tomorrow . Instructions / Follow-Up Instructions / Follow-Up MEDICATIONS: * Resume previous medications unless instructed otherwise by your surgeon. * Always take pain medication on a full stomach or with food to avoid upset stomach. * Do not drink alcohol or drive while taking narcotics. * Ibuprofen or Tylenol may be taken if narcotic not needed. SPECIAL CARE INSTRUCTIONS: __ None _X_ Keep extremity elevated and iced x 48 hours; apply ice 20-30 minutes 8-10 times/day. May remove at night. __ Sling __24 hrs/day __ Remove at night __ Shoulder Immobilizer __ 24 hrs/day __ Remove at night _X_ Dressing __ Maintain until seen in office, may shower with plastic over site _X_ Remove dressings in 24-48 hours and then may shower __ Cover incisions with band-aids after showering __ Do not remove steri-strips Call physician if chills or temperature rises above 102 degrees or pain unrelieved by prescribed pain medications at . . Current Hospital Diet Patient's current hospital diet: Discharge Diet Recommended Diet: Regular Diet Procedures Procedures Performed: T11 and L1 Kyphoplasty Pending Studies Studies pending at discharge: yes List of pending studies: BIOPSY OF T11 VERTEBRAL BODY Medical Emergencies . Who to Call and When: Medical Emergencies: If at any time you feel your situation is an emergency, please call 911 immediately. . Non-Emergent Contact Non-Emergency issues call your: Primary Care Provider . "Provider Documentation" section prepared by Herb Flores. . VTE Core Measure Inpt VTE Proph given/why not?: SCD's
--- NOTE | 2016-11-28 14:21 | [facility] Post Operative Brief Note ---
Immediate Operative Summary Operative Date Nov 28, 2016. Pre-Operative Diagnosis Compression fracture T11 and L1 Post-Operative Diagnosis Compression fracture T11 and L1 Procedure(s) Performed T11 and L1 Kyphoplasty Surgeon Dr. Kermit Ruiz Diamond Powder Mixer Surgeon(s) Herb Flores PA-C Estimated Blood Loss 15 mL Findings compression fracture Specimens Pathology specimens A: Biopsy, routine, T11 vertebrae, left Complication(s) None Disposition Recovery Room / PACU
--- NOTE | 2016-11-28 14:26 | DIAGNOSTIC IMAGING REPORT ---
LUMBAR SPINE, INTRAOPERATIVE FLUOROSCOPY HISTORY: T11 and L1 kyphoplasty. FLUOROSCOPY TIME: 1 minute and 38 seconds. FINDINGS: Intraoperative fluoroscopy was provided for the lumbar spine. 2 fluoroscopic spot images were obtained. Status post kyphoplasty at T11 and L1. The majority of the cement is within the vertebral bodies. There is extrusion of the cement within the right paraspinal location at T11. IMPRESSION: Fluoroscopy provided for a T11 and L1 kyphoplasty. Electronically signed by: Errol Vegas M.D. 11/28/2016 2:25 PM Dictated Date/Time: 11/28/2016 2:24 PM
[2016-11-28] MEDS ORDERED: HYDROmorphone INJ 0.5 MG/0.5 ML SYR ONE (14:47)
[2016-11-28] MEDS: HYDROmorphone INJ 2 MG/ML SYR/VIAL IV PRN ×4 (14:49→15:25)
[2016-11-28] MEDS ORDERED: NURSING VERBAL MED ORDER ONE (15:00)
[2016-11-28] MEDS ORDERED: NovoLOG PER UNIT CHARGE SC ONE (15:00)
[2016-11-28] MEDS ORDERED: HYDROmorphone INJ 1 MG/ML SYR ONE (15:03)
[2016-11-28] MEDS ORDERED: KETOROLAC TROMETHAMINE 30 MG/ML VIAL ONE (15:46)
--- NOTE | 2016-11-28 15:47 | Anesthesiology Progress Note ---
Anesthesia Post Op Note Date & Time Nov 28, 2016 at 15:47 Vital Signs Pain Intensity: 3 Vital Signs Past 12 Hours Date Time Temp Pulse Resp B/P (MAP) Pulse Ox O2 Delivery O2 Flow Rate FiO2 11/28/16 15:35 36.5 105 18 157/95 95 Nasal Cannula 2 11/28/16 15:20 36.5 101 18 147/94 94 Nasal Cannula 2 11/28/16 15:10 36.5 106 18 147/97 94 Nasal Cannula 2 11/28/16 15:00 99 14 143/85 94 Nasal Cannula 2 11/28/16 14:50 97 14 153/87 95 Nasal Cannula 2 11/28/16 14:40 97 13 152/97 98 Oxymask 10 11/28/16 14:30 98 16 141/99 100 Oxymask 10 11/28/16 14:23 36.1 102 16 162/101 100 Oxymask 10 11/28/16 11:13 36.9 98 20 161/97 (118) 98 Room Air Notes Mental Status: alert / awake / arousable, participated in evaluation Pt Amnestic to Procedure: Yes Nausea / Vomiting: adequately controlled Pain: adequately controlled Airway Patency, RR, SpO2: stable & adequate BP & HR: stable & adequate Hydration State: stable & adequate Anesthetic Complications: no major complications apparent
[2016-11-28] MEDS ORDERED: KETO10TA PO (15:53)
[2016-11-28] MEDS ORDERED: HYDR-5688 PO (15:53)
[2016-11-28 16:00] VITALS: BP 168/103; PULSE 109; TEMP 36.9; O2SAT 91
[2016-11-28] MEDS ORDERED: KETOROLAC TROMETHAMINE 30 MG/ML VIAL IV. PRN (16:00)
[2016-11-28 16:30] VITALS: BP 145/92; PULSE 88; TEMP 36.8; O2SAT 95
--- NOTE | 2016-11-28 22:50 | OPERATIVE REPORT ---
DATE OF OPERATION: 11/28/2016 PREOPERATIVE DIAGNOSIS: Compression fractures, L1-T12. POSTOPERATIVE DIAGNOSIS: Same. PROCEDURE: Kyphoplasty, T11 and L1. COMPLICATIONS: Zero. BLOOD LOSS: 15. SURGEON: Dr. Ruiz and Herb Flores PA-C. ANESTHETIC: General. DESCRIPTION OF PROCEDURE: The patient was taken to the surgical suite, placed prone, scrubbed, prepped and draped sterile. We used biplanar x-ray and C-arm. We ____ to engage first the T11 vertebra, made a skin incision and advanced the trocar bilaterally. First, we took a nice biopsy of the vertebral body. We put in the balloon, inflated each balloon to 2 mL of volume in approximately 200 pounds per square inch of pressure. The balloons were withdrawn, cement advanced, the fill was certainly satisfactory fairly ____ We irrigated, closed with nylon suture. We then went down to L1 vertebral body. Skin incision, fascial incision, advance the trocars once again to the pedicles, the anatomic location was superb. We also inflated the vertebrae to approximately 2 mL of fluid along with approximately 250 pounds per square inch per balloon. The balloon was withdrawn after deflated. The cement engaged, the fill was excellent. We then irrigated, actually closed with nylon suture and a sterile dressing applied. The patient returned supine, extubated to PACU stable. No complications. I attest to the content of the Intraoperative Record and any orders documented therein. Any exception s are noted below.
== END 2016-11-28 17:10 | disposition home or self-care (01) ==
LOC: C.ACU 10:04
PROVIDERS: ATTEND Orthopaedic Surgery Orthopaedic Surgery of the Spine
DX: M48.55XA Collapsed vertebra, not elsewhere classified, thoracolumbar region, initial encounter for fracture (principal); X58.XXXA Exposure to other specified factors, initial encounter; I10 Essential (primary) hypertension; E78.5 Hyperlipidemia, unspecified; E11.9 Type 2 diabetes mellitus without complications; E27.40 Unspecified adrenocortical insufficiency; Z79.52 Long term (current) use of systemic steroids; Z79.82 Long term (current) use of aspirin; Z79.4 Long term (current) use of insulin; Z79.899 Other long term (current) drug therapy; Z87.891 Personal history of nicotine dependence

== ENCOUNTER → 2016-12-06 | Outpatient (CLI) | payer OTHER ==
[~2016-12-06] MED LIST changes: -CEFAZOLIN 2000 MG/60 ML D5W 60 ML IV SCH; +HYDR-5688 PO; -LACTATED RINGER'S 1000ML 1,000 ML IV SCH; -LACTATED RINGER'S 1000ML IV SCH
--- NOTE | 2016-12-06 10:33 | DIAGNOSTIC IMAGING REPORT ---
CHEST 2 VIEWS ROUTINE CLINICAL HISTORY: H/O KYPHO T12 L1, R/O NEW COMP FX COMPARISON STUDY: Chest radiograph July 08, 2015. FINDINGS: Lung volumes are normal. No pneumothorax or pleural effusion is present. There is no evidence of pulmonary edema. Mild cardiomegaly is unchanged. There is no consolidation to suggest pneumonia. Linear left basilar opacity is suggestive of atelectasis or scarring. T 11 and L1 vertebral augmentations are noted. A small amount of cement within the left paraspinal region is noted at the T11 level as well as a small amount of cement projecting over the L1-L2 disc space. IMPRESSION: 1. No acute cardiopulmonary findings. 2. Linear left basilar opacity suggestive of atelectasis. 3. Mild cardiomegaly without evidence of pulmonary edema. Electronically signed by: Tom Graham M.D. 12/06/2016 10:32 AM Dictated Date/Time: 12/06/2016 10:28 AM
--- NOTE | 2016-12-06 10:45 | DIAGNOSTIC IMAGING REPORT ---
L-SPINE MIN 4 VIEWS ROUTINE CLINICAL HISTORY: 56 years-old Male presenting with PAIN. TECHNIQUE: Frontal, bilateral oblique, lateral, and coned in lateral views of the lumbar spine were obtained. COMPARISON: 11/19/2016. FINDINGS: Interval kyphoplasty of T11 and L1. Herniation of kyphoplasty material into the L1-2 disc space. Normal lumbar lordosis. Evaluation of vertebral body heights somewhat limited due to suboptimal positioning on lateral projection. Nonoperative levels demonstrate grossly normal height and alignment. Mild scoliotic curvature of the lumbar spine. No convincing radiographic evidence of new compression fracture. No gross evidence of osseous neural foraminal narrowing. IMPRESSION: Status post kyphoplasty changes with herniation of kyphoplasty material into the L1-2 disc space. Allowing for suboptimal positioning, no convincing radiographic evidence of new compression fracture. If there is continuing clinical concern, cross-sectional imaging could be obtained. Electronically signed by: Roberto Gustafson M.D. 12/06/2016 10:43 AM Dictated Date/Time: 12/06/2016 10:41 AM
== END | disposition home or self-care (01) ==
LOC: C.RADBC 10:04
PROVIDERS: ATTEND Anesthesiology
DX: M54.6 Pain in thoracic spine (principal); J98.11 Atelectasis; I51.7 Cardiomegaly

== ENCOUNTER → 2016-12-15 | Outpatient (CLI) | payer OTHER ==
[~2016-12-15] MED LIST changes: -HYDR-3983 PO
== END | disposition home or self-care (01) ==
LOC: C.MAMM 08:02
PROVIDERS: ATTEND Nurse Practitioner Family
DX: M81.0 Age-related osteoporosis without current pathological fracture (principal)

== ENCOUNTER → 2017-01-02 | Outpatient (CLI) | payer OTHER ==
[2017-01-02 12:26] LABS: ESTIMATED AVERAGE GLUCOSE 252 mg/dl; HA1C FLAG Normal (Normal)
[2017-01-02 13:36] LABS: CALCIUM URINE 9.9 mg/dl
[2017-01-02 13:37] LABS: URINE TOTAL PROTEIN 5.4 mg/dl (0-11.9)
[2017-01-03 16:36] LABS: GAMMA GLOBULIN 0.4 G/DL (0.8-1.7); TOTAL PROTEIN 6.7 G/DL (6.2-8.3)
== END | disposition home or self-care (01) ==
LOC: C.LAB1850 10:48
PROVIDERS: ATTEND Internal Medicine Rheumatology
DX: E11.9 Type 2 diabetes mellitus without complications (principal); E55.9 Vitamin D deficiency, unspecified; M80.88XA Other osteoporosis with current pathological fracture, vertebra(e), initial encounter for fracture; F34.1 Dysthymic disorder

== ENCOUNTER → 2017-01-13 | Outpatient (CLI) | payer OTHER | END | disposition home or self-care (01) | LOC: C.LAB1850 09:27 | PROVIDERS: ATTEND Internal Medicine Pulmonary Disease | DX: J45.909 Unspecified asthma, uncomplicated (principal); J30.9 Allergic rhinitis, unspecified ==

== ENCOUNTER → 2017-04-20 | Outpatient (CLI) | payer OTHER ==
[~2017-04-20] MED LIST changes: +PANT1TAB3 PO; -PANT1TAB48 PO
[2017-04-20 10:38] LABS: BASO % 0.3 %; BASO ABS # 0.02 K/uL (0-0.2); EOS ABS # 0.15 K/uL (0-0.5); HEMATOCRIT 40.1 % (42-52); HEMOGLOBIN 13.4 g/dL (14.0-18.0); IG# 0.06 K/uL (0.00-0.02); LYMPH % 11.6 %; LYMPH ABS # 0.87 K/uL (1.2-3.4); MEAN CELL VOLUME 83.2 fL (80-100); MEAN CORPUSCULAR HEMOGLOBIN 27.8 pg (25-34); MEAN CORPUSCULAR HGB CONC 33.4 g/dl (32-36); MEAN PLATELET VOLUME 10.3 fL (7.4-10.4); MONO % 6.2 %; MONO ABS # 0.46 K/uL (0.11-0.59); NEUT % 79.1 %; NEUT ABS # 5.91 K/uL (1.4-6.5); PLATELET COUNT 276 K/uL (130-400); RED CELL DISTRIBUTION WIDTH CV 15.9 % (11.5-14.5); RED CELL DISTRIBUTION WIDTH SD 48.1 fL (36.4-46.3); WHITE BLOOD COUNT 7.47 K/uL (4.8-10.8)
[2017-04-20 11:03] LABS: BLOOD UREA NITROGEN 18 mg/dl (7-18); CALCIUM 9.7 mg/dl (8.5-10.1); CARBON DIOXIDE 28 mmol/L (21-32); CREATININE 0.98 mg/dl (0.60-1.40); GLUCOSE 309 mg/dl (70-99); POTASSIUM 3.5 mmol/L (3.5-5.1); SODIUM 135 mmol/L (136-145)
[2017-04-20 12:17] LABS: HEMOGLOBIN A1C 10.2 % (4.5-5.6)
[2017-04-21 13:45] LABS: ANA SCREEN TC 249X NEGATIVE (NEGATIVE)
== END | disposition home or self-care (01) ==
LOC: C.LAB1850 10:07
PROVIDERS: ATTEND Nurse Practitioner Adult Health
DX: M25.50 Pain in unspecified joint (principal); D64.9 Anemia, unspecified; E11.9 Type 2 diabetes mellitus without complications; M79.89 Other specified soft tissue disorders

== ENCOUNTER → 2017-05-02 | Outpatient (CLI) | payer OTHER ==
--- NOTE | 2017-05-02 11:35 | DIAGNOSTIC IMAGING REPORT ---
R HAND MIN 3 VIEWS ROUTINE, L HAND MIN 3 VIEWS ROUTINE HISTORY: 56 years-old Male HAND PAIN acute bilateral hand pain with concern for osteoarthritis. COMPARISON: None available TECHNIQUE: 3 views of the bilateral hands for a total of 6 images FINDINGS: RIGHT: Subcortical cystic change of the central capitate. No acute fracture, subluxation or significant degenerative changes identified. Soft tissues are unremarkable without opaque foreign body. LEFT: No acute fracture, subluxation or significant degenerative changes. Soft tissues are unremarkable without opaque foreign body. IMPRESSION: No acute fracture, subluxation or significant degenerative changes identified within either hand. The above report was generated using voice recognition software. It may contain grammatical, syntax or spelling errors. Electronically signed by: Ritesh Tang M.D. 05/02/2017 11:34 AM Dictated Date/Time: 05/02/2017 11:31 AM
--- NOTE | 2017-05-02 11:40 | DIAGNOSTIC IMAGING REPORT ---
L-SPINE MIN 4 VIEWS ROUTINE HISTORY: 56 years-old Male S39.012A Low back [id number] acute low back pain without reported trauma COMPARISON: Lumbar spine radiographs 12/06/2016 TECHNIQUE: 5 views of the lumbar spine FINDINGS: The bones appear mildly demineralized. There are 5 lumbar type vertebral segments present. Remote compression deformities with Vertebroplasty changes are again noted at the T11 and L1 levels. Extrusion of cement material at the L1 vertebral body extends into the L1-L2 disc space, unchanged. No acute compression deformity or malalignment identified. Minimal multilevel endplate spurring and facet arthrosis. Moderate intervertebral disc space narrowing at T10-T11. No spondylolysis or spondylolisthesis. IMPRESSION: 1. No acute fracture or subluxation identified. 2. Remote compression deformities with vertebroplasty changes again noted at the T11 and L1 levels. The above report was generated using voice recognition software. It may contain grammatical, syntax or spelling errors. Electronically signed by: Ritesh Tang M.D. 05/02/2017 11:39 AM Dictated Date/Time: 05/02/2017 11:36 AM
== END | disposition home or self-care (01) ==
LOC: C.RAD1850 11:05
PROVIDERS: ATTEND Nurse Practitioner Adult Health
DX: M13.80 Other specified arthritis, unspecified site (principal); M80.88XA Other osteoporosis with current pathological fracture, vertebra(e), initial encounter for fracture; Z79.52 Long term (current) use of systemic steroids; S39.012A Strain of muscle, fascia and tendon of lower back, initial encounter; X58.XXXA Exposure to other specified factors, initial encounter

== ENCOUNTER → 2017-05-05 | Outpatient (CLI) | payer OTHER ==
--- NOTE | 2017-05-05 11:47 | DIAGNOSTIC IMAGING REPORT ---
WHOLE BODY BONE SCAN HISTORY: ALF USE OF IMMUNOSUPPRESSANT MEDS RADIOTRACER: 26.1 mCi Tc-99m MDP STUDY/IMAGES: Planar anterior and posterior whole body imaging was performed 3 hours following the intravenous administration of radiotracer. COMPARISON: Bilateral hands 05/02/2017. Lumbar spine 05/02/2017. Head CT 12/02/2014. FINDINGS: There is abnormal linear radiotracer uptake seen at the T6 and T11 vertebral bodies consistent with subacute to acute compression fractures. Faint punctate focus of radiotracer uptake seen within the left parietal bone. Additional punctate foci of radiotracer uptake seen within the anterior right fourth rib and bilateral anterior eighth ribs. These are indeterminate. No abnormal radiotracer uptake seen within the hands or feet. IMPRESSION: 1. Radiotracer uptake at the T6 and T11 vertebral bodies consistent with subacute to acute compression fractures. 2. Foci of radiotracer uptake seen within the right anterior fourth rib and bilateral anterior eighth ribs. This is nonspecific but could be due to old trauma. 3. Faint punctate focus of radiotracer uptake seen within the left parietal bone. This is indeterminate. However, if the patient has a history of malignancy this could represent metastatic disease. Electronically signed by: Errol Vegas M.D. 05/05/2017 11:46 AM Dictated Date/Time: 05/05/2017 11:35 AM
== END | disposition home or self-care (01) ==
LOC: C.NUCL 07:49
PROVIDERS: ATTEND Internal Medicine Rheumatology
DX: Z79.899 Other long term (current) drug therapy (principal)

== ENCOUNTER → 2017-05-20 | Outpatient (CLI) | payer OTHER ==
[2017-05-20 13:00] LABS: BASO % 0.2 %; BASO ABS # 0.02 K/uL (0-0.2); EOS ABS # 0.12 K/uL (0-0.5); HEMATOCRIT 41.5 % (42-52); HEMOGLOBIN 13.8 g/dL (14.0-18.0); IG# 0.11 K/uL (0.00-0.02); LYMPH % 9.3 %; LYMPH ABS # 1.07 K/uL (1.2-3.4); MEAN CELL VOLUME 83.7 fL (80-100); MEAN CORPUSCULAR HEMOGLOBIN 27.8 pg (25-34); MEAN CORPUSCULAR HGB CONC 33.3 g/dl (32-36); MEAN PLATELET VOLUME 10.7 fL (7.4-10.4); MONO % 4.4 %; MONO ABS # 0.51 K/uL (0.11-0.59); NEUT % 84.1 %; NEUT ABS # 9.67 K/uL (1.4-6.5); PLATELET COUNT 341 K/uL (130-400); RED CELL DISTRIBUTION WIDTH CV 16.3 % (11.5-14.5); RED CELL DISTRIBUTION WIDTH SD 49.9 fL (36.4-46.3)
[2017-05-20 13:09] LABS: ALBUMIN 3.8 gm/dl (3.4-5.0); ALT/SGPT 41 U/L (12-78); AST/SGOT 22 U/L (15-37); CREATININE 1.15 mg/dl (0.60-1.40)
[2017-05-20 13:12] LABS: ALKALINE PHOSPHATASE 153 U/L (45-117); TOTAL PROTEIN 7.9 gm/dl (6.4-8.2)
== END | disposition home or self-care (01) ==
LOC: C.LAB1850 11:45
PROVIDERS: ATTEND Internal Medicine Rheumatology
DX: Z79.899 Other long term (current) drug therapy (principal)

== ENCOUNTER → 2017-06-21 | Outpatient (CLI) | payer OTHER ==
[~2017-06-21] MED LIST changes: +ASPECOTC PO; -ASPI325T45 PO; -HYDR-5688 PO
--- NOTE | 2017-06-21 10:05 | DIAGNOSTIC IMAGING REPORT ---
LEFT LOWER EXTREMITY VENOUS DOPPLER HISTORY: M79.605 Left leg pain early tomorrow am 06/21 E X0D E [id number] COMPARISON STUDY: None. FINDINGS: There is normal compressibility, flow, and augmentation within the left lower extremity deep venous system. IMPRESSION: No DVT within the left lower extremity. Electronically signed by: Errol Vegas M.D. 06/21/2017 10:04 AM Dictated Date/Time: 06/21/2017 10:03 AM
== END | disposition home or self-care (01) ==
LOC: C.ULTR 09:25
PROVIDERS: ATTEND Internal Medicine
DX: M79.605 Pain in left leg (principal)

== ENCOUNTER → 2017-07-01 | Outpatient (CLI) | payer OTHER ==
[2017-07-01 10:25] LABS: BASO % 0.4 %; BASO ABS # 0.03 K/uL (0-0.2); EOS % 2.1 %; EOS ABS # 0.18 K/uL (0-0.5); HEMATOCRIT 40.7 % (42-52); HEMOGLOBIN 13.1 g/dL (14.0-18.0); IG# 0.04 K/uL (0.00-0.02); LYMPH % 14.3 %; LYMPH ABS # 1.22 K/uL (1.2-3.4); MEAN CORPUSCULAR HEMOGLOBIN 27.3 pg (25-34); MEAN CORPUSCULAR HGB CONC 32.2 g/dl (32-36); MEAN PLATELET VOLUME 10.3 fL (7.4-10.4); MONO % 6.9 %; MONO ABS # 0.59 K/uL (0.11-0.59); NEUT % 75.8 %; NEUT ABS # 6.47 K/uL (1.4-6.5); PLATELET COUNT 359 K/uL (130-400); RED CELL DISTRIBUTION WIDTH CV 16.9 % (11.5-14.5); RED CELL DISTRIBUTION WIDTH SD 52.3 fL (36.4-46.3); WHITE BLOOD COUNT 8.53 K/uL (4.8-10.8)
[2017-07-01 10:51] LABS: AST/SGOT 17 U/L (15-37); CREATININE 0.94 mg/dl (0.60-1.40)
== END | disposition home or self-care (01) ==
LOC: C.LAB1850 09:06
PROVIDERS: ATTEND Internal Medicine Rheumatology
DX: M79.669 Pain in unspecified lower leg (principal)

== ENCOUNTER 2021-10-19 17:31 | Observation (INO) ==
[2021-10-19 18:22] LABS: Basophils # (auto) 0.07 K/uL (0-0.2); Basophils % (auto) 0.6 %; Eosinophils # (auto) 0.01 K/uL (0-0.50); Eosinophils % (auto) 0.1 %; Hematocrit (blood only) 41.8 % (40.1-51.0); Hemoglobin 13.6 g/dl (14.0-18.0); Immature Granulocytes % (auto) 2.5 %; Lymphocytes # (auto) 1.56 K/uL (1.2-3.4); Lymphocytes % (auto) 12.9 %; Mean Corpuscular Hemoglobin 29.1 pg (25.0-34.0); Mean Corpuscular Hgb Conc 32.5 g/dL (32.0-36.0); Mean Corpuscular Volume 89.3 fL (80.0-100.0); Mean Platelet Volume 10.9 fL (9.4-12.4); Monocytes # (auto) 0.76 K/uL (0.24-0.82); Monocytes % (auto) 6.3 %; Neutrophils # (auto) 9.42 K/uL (1.4-6.5); Neutrophils % (auto) 77.6 %; Platelet Count 332 K/uL (130-400); RDW Coefficient of Variation 14.8 % (11.5-14.5); RDW Standard Deviation 48.3 fL (36.4-46.3); Red Blood Count 4.68 M/uL (4.63-6.08); White Blood Count 12.12 K/ul (4.8-10.8)
[2021-10-19 18:34] LABS: INR 0.9 (0.9-1.1); Partial Thromboplastin Ratio 0.9; Partial Thromboplastin Time 25.6 Seconds (21.0-31.0); Prothrombin Time 9.8 Seconds (9.0-12.0)
--- NOTE | 2021-10-19 18:35 | XRay Report ---
XR chest 2V PA/lateral CLINICAL HISTORY: Atypical chest pain. Shortness of breath. COMPARISON STUDY: Chest radiograph December 06, 2016. FINDINGS: Lung volumes are normal. No pneumothorax or pleural effusion is noted. Multiple old bilater al rib fractures are present. Mild cardiomegaly is noted without evidence for pulmonary edema. There is no consolidation to suggest pneumonia. Multilevel vertebroplasties are incidentally noted. IMPRESSION: No acute cardiopulmonary findings. ACT 112: Negative or not required by law. Electronically signed by: Tom Graham M.D. 10/19/2021 6:34 PM
[2021-10-19 18:45] LABS: Alanine Aminotransferase 27 U/L (7-52); Albumin Globulin Ratio 1.6 (0.9-2); Albumin Level 4.4 gm/dl (3.4-5.0); Alkaline Phosphatase 65 U/L (34-104); BUN Creatinine Ratio 24.6 (10-20); Bilirubin,Total 0.7 mg/dl (0.2-1.0); Blood Urea Nitrogen 33 mg/dl (6-23); Calcium 9.5 mg/dl (8.5-10.1); Carbon Dioxide 24 mmol/L (21-32); Chloride 94 mmol/L (98-107); Creatinine Clr Calc Pharmacy 67.7 ml/min; Est GFR (African American) 65.8 ml/min; Est GFR (Non-African American) 56.8 ml/min; Globulin 2.7 gm/dl (2.5-4.0); Glucose 356 mg/dl (70-99(Fasting)); Total Protein 7.1 gm/dl (6.0-8.3); Troponin I High Sensitivity 17.4 pg/ml (0-20)
[2021-10-19] MEDS ORDERED: ACETAMINOPHEN 500 MG TAB PO STA (21:32)
[2021-10-19] MEDS ORDERED: ASPIRIN CHEW 324 MG PO STA (21:32)
[2021-10-19] MEDS ORDERED: SODIUM CHLORIDE 0.9% 500 ML IV SCH (21:45)
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
[2021-10-19 22:01] LABS: Troponin I High Sensitivity 16.4 pg/ml (0-20)
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
[2021-10-20 00:34] LABS: Potassium 3.6 mmol/L (3.5-5.1)
[2021-10-20] MEDS ORDERED: IXEKIZUMAB 80 MG/ML SQ SCH (00:51)
[2021-10-20] MEDS ORDERED: ACETAMINOPHEN 325 MG TAB PO PRN (00:51)
[2021-10-20] MEDS ORDERED: HYDROCODONE/ACETAMOPHEN 5/325MG TAB PO PRN (00:51)
[2021-10-20] MEDS ORDERED: ONDANSETRON INJ 2 MG/ML 2 ML VIAL IV PRN (00:51)
[2021-10-20] MEDS ORDERED: AUTO INJECTOR SQ SCH (00:51)
[2021-10-20] MEDS ORDERED: POLYETHYLENE (MIRALAX) 17 GM PACK PO PRN (00:51)
[2021-10-20] MEDS ORDERED: IBUPROFEN 200 MG TAB PO PRN (01:13)
[2021-10-20] MEDS ORDERED: GLUCAGON FOR INJ 1 MG VIAL IM PRN (01:15)
[2021-10-20] MEDS ORDERED: GLUCOSE 40% GEL 15 GM TUBE PO PRN (01:15)
[2021-10-20] MEDS ORDERED: CARBOHYDRATES FOR HYPOGLYCEMIA PO PRN (01:15)
[2021-10-20] MEDS ORDERED: DEXTROSE 50% 50 ML SYRINGE IV PRN (01:15)
[2021-10-20] MEDS ORDERED: GLUCOSE 10 TAB/TUBE PO PRN (01:15)
[2021-10-20] MEDS: INSULIN ASPART PER UNIT SC SCH ×4 (01:19→18:01)
--- NOTE | 2021-10-20 01:56 | Billing Data ---
Date of Service October 19, 2021 Coding Level of Care Code 58833 Initial Inpt Care Lvl 3
[2021-10-20 04:25] LABS: Hematocrit (blood only) 37.6 % (40.1-51.0); Hemoglobin 12.4 g/dl (14.0-18.0); Mean Corpuscular Hemoglobin 29.2 pg (25.0-34.0); Mean Corpuscular Volume 88.7 fL (80.0-100.0); Mean Platelet Volume 10.9 fL (9.4-12.4); Platelet Count 282 K/uL (130-400); RDW Coefficient of Variation 14.8 % (11.5-14.5); RDW Standard Deviation 48.7 fL (36.4-46.3); Red Blood Count 4.24 M/uL (4.63-6.08); White Blood Count 9.84 K/ul (4.8-10.8)
[2021-10-20 04:51] LABS: Anion Gap 7 (3-11); BUN Creatinine Ratio 28.9 (10-20); Blood Urea Nitrogen 33 mg/dl (6-23); Calcium 8.6 mg/dl (8.5-10.1); Carbon Dioxide 27 mmol/L (21-32); Chloride 99 mmol/L (98-107); Cholesterol 359 mg/dl (0-200); Creatinine Clr Calc Pharmacy 79.4 ml/min; Glucose 272 mg/dl (70-99(Fasting)); HDL Cholesterol 54 mg/dl; Potassium 3.7 mmol/L (3.5-5.1); Sodium 133 mmol/L (136-145); Triglycerides 511 mg/dl (0-150)
[2021-10-20 05:11] LABS: Chol HDL Ratio 6.6 (0-5)
[2021-10-20 05:33] LABS: Troponin I High Sensitivity 11.2 pg/ml (0-20)
[2021-10-20] MEDS ORDERED: ENOXAPARIN INJ 40 MG/0.4 ML SYR SQ SCH (08:00)
[2021-10-20 08:11] LABS: Estimated Average Glucose 280 mg/dl; Hemoglobin A1C 11.4 % (4.5-5.6)
[2021-10-20] MEDS ORDERED: predniSONE 20 MG TAB PO SCH (09:00)
[2021-10-20] MEDS ORDERED: amLODIPine BESYLATE 5 MG TAB PO SCH (09:00)
[2021-10-20] MEDS ORDERED: ROSUVASTATIN CALCIUM 20 MG TAB PO SCH (09:00)
[2021-10-20] MEDS ORDERED: LANTUS PER UNIT CHARGE SQ SCH (09:00)
[2021-10-20] MEDS ORDERED: FAMOTIDINE 40 MG TABLET PO SCH (09:00)
[2021-10-20] MEDS ORDERED: ESCITALOPRAM OXALATE 20 MG TAB PO SCH (09:00)
[2021-10-20] MEDS ORDERED: METOPROLOL SUCC 25MG EXT REL TAB PO SCH ×2 (09:00)
[2021-10-20] MEDS ORDERED: POTASSIUM CHLORIDE CRTAB 20 MEQ TABCR PO SCH (09:00)
[2021-10-20] MEDS ORDERED: FLUCONAZOLE 100 MG TAB PO SCH (09:00)
[2021-10-20] MEDS ORDERED: buPROPion SR 150 MG TABCR PO SCH (09:00)
[2021-10-20] MEDS ORDERED: FUROSEMIDE 40 MG TAB PO SCH (09:00)
[2021-10-20] MEDS ORDERED: LOSARTAN POTASSIUM 50 MG TAB PO SCH (09:00)
--- NOTE | 2021-10-20 09:02 | Electrocardiogram Report ---
Test Reason : Blood Pressure : / mmHG Vent. Rate : 118 BPM Atrial Rate : 118 BPM P-R Int : 150 ms QRS Dur : 090 ms QT Int : 330 ms P-R-T Axes : 046 -61 036 degrees QTc Int : 462 ms Sinus tachycardia Left atrial enlargement Left anterior fascicular block Abnormal ECG When compared with ECG of 23-NOV-2016 10:51, No significant change was found Confirmed by Ian Cotto ([id number]) on 10/20/2021 9:01:42 AM Referred By: REFERRED SELF Confirmed By:Ian Cotto
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
--- NOTE | 2021-10-20 12:08 | Hospitalist Progress Note ---
Date of Service October 20, 2021 Assessment & Plan (1) Chest pain: Plan: Chest Pain - troponin series negative. Stress echo negative for ischemia. Final cardiac echo report noted. Cardiology consultation noted. (2) Hypertension: Plan: Controlled with amlodipine and losartan (3) Diabetes: Plan: Diabetic diet. Continue Lantus therapy. Sliding scale insulin coverage as needed (4) Hyperlipemia: Plan: Low-cholesterol diet. Continue statin therapy (5) Anemia: Plan: Currently stable. No overt GI bleeding (6) Gastroesophageal reflux disease without esophagitis: Plan: Continue Pepcid therapy (7) Headache: Plan: Tylenol as needed (8) Psoriatic arthritis: Plan: Currently on a prednisone tapering dose (9) Asthma: Plan: Quiescent. Use inhalers as needed Plan Home today, October 20 Admission and Anticipated Discharge Date Admission Date: October 19, 2021 Subjective Alert and oriented. Asymptomatic. Cardiology consultation reviewed. He had a stress echo today that was negative for ischemia. He will be discharged home later today. Formal final cardiac echo report is pending. Review of Systems Review of Systems: Constitutional-no fever or chills ENT-no blurred vision, no double vision, no epistaxis, no sore throat Respiratory-no cough, no wheezing, no shortness of breath Cardiac-no palpitations, no chest pain, no syncope GI-no nausea, vomiting, diarrhea, melena, hematochezia -no urinary retention, no urinary incontinence, no dysuria, no hematuria Musculoskeletal-no joint pain, no muscle tenderness Skin-no bruising, no rashes, no pruritus Neuro-no isolated weakness, no paresthesia, no weakness Psych-no depression, no anxiety Physical Exam Physical Exam: General-alert and oriented x3, no fevers, no chills HEENT-head atraumatic and normocephalic, pupils equal and reactive to light, extraocular muscles intact Neck-no lymphadenopathy or thyromegaly, trachea midline Chest-clear to auscultation percussion. No rales wheezing or rhonchi Cardiac-regular rate and rhythm, normal S1 and S2, no murmurs Abdomen-normal bowel sounds, nontender, no hepatosplenomegaly Extremities-no cyanosis, clubbing, or edema Neuro-cranial nerves II through XII intact, motor and sensory function within normal limits, strength symmetrical , no focal deficits Psych-normal affect, normal mood Results & Data Results & Data ([facility]) Vital Signs (Past 12 Hours) Vital Signs Temp Pulse Pulse Resp BP Pulse Ox O2 Del Method 10/20/21 08:29 99 H 10/20/21 07:45 Room Air 10/20/21 07:09 36.3 C L 92 H 20 132/41 L 96 Room Air 10/20/21 03:27 36.6 C 98 H 18 123/66 95 10/20/21 00:34 100 H 10/20/21 00:20 Room Air 10/20/21 00:20 36.5 C 101 H 16 149/82 H 95 Room Air Laboratory Results 10/20/21 03:49 10/20/21 03:49 PG Care Time/CCT Total # of Minutes Spent Total Time Spent with Patient: Total time spent is greater than 50% in coordination of care (as documented) at patient's floor/unit and/or counseling patient: Coding Level of Care Code 82134 Subseq Hosp Care Lvl 3 Diagnoses Chest pain R07.9 Hypertension I10 Diabetes E11.9 Hyperlipemia E78.5 Anemia D64.9 Gastroesophageal reflux disease without esophagitis K21.9 Headache R51.9 Psoriatic arthritis L40.50 Asthma J45.909
--- NOTE | 2021-10-20 13:12 | XCELERA ---
[id number]
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
== END 2021-10-20 18:21 | disposition home or self-care (01) ==
LOC: ED 17:31 → INTOOBSV 22:45 → SUATTDRO 22:45 → 4W 22:45

== ENCOUNTER 2022-12-07 13:45 | Inpatient (IN) ==
[2022-12-07 14:34] LABS: Hematocrit (blood only) 41.8 % (42.0-52.0); Hemoglobin 14.2 g/dl (14.0-18.0); Mean Corpuscular Hemoglobin 30.6 pg (25.0-34.0); Mean Corpuscular Volume 90.1 fL (80.0-100.0); Mean Platelet Volume 10.9 fL (9.4-12.4); Platelet Count 281 K/uL (130-400); RDW Coefficient of Variation 15.5 % (11.5-14.5); RDW Standard Deviation 51.4 fL (36.4-46.3); Red Blood Count 4.64 M/uL (4.70-6.10); White Blood Count 10.89 K/ul (4.8-10.8)
--- NOTE | 2022-12-07 14:41 | XRay Report ---
XR chest 1V not portable HISTORY: Chest pain, nonspecific COMPARISON: Chest 10/19/2021. FINDINGS: No pneumothorax. No pleural effusions. The heart remains mildly enlarged. No new focal lung consolidations to suggest a pneumonia. No evidence for pulmonary edema. Multiple old, healed bilater al rib fractures. Multilevel vertebroplasty is incidentally noted. IMPRESSION: No significant change compared to the prior study. No acute process. ACT 112: Negative or not required by law. Electronically signed by: Errol Vegas M.D. 12/07/2022 2:40 PM
[2022-12-07 14:54] LABS: Troponin I High Sensitivity 7.4 pg/ml (0-20)
[2022-12-07 15:00] LABS: Albumin Level 4.4 gm/dl (3.4-5.0); Anion Gap 12 (3-11); Bilirubin,Total 0.7 mg/dl (0.2-1.0); Calcium 10.2 mg/dl (8.6-10.3); Carbon Dioxide 21 mmol/L (21-32); Chloride 94 mmol/L (98-107); Sodium 127 mmol/L (136-145)
[2022-12-07 15:01] LABS: INR 0.9 (0.9-1.1); Partial Thromboplastin Ratio 0.9; Partial Thromboplastin Time 25.2 Seconds (21.0-31.0)
[2022-12-07 15:02] LABS: Basophils # (auto) 0.08 K/uL (0.00-0.20); Basophils % (auto) 0.7 %; Immature Granulocytes # (auto) 0.69 K/uL (0.01-0.20); Immature Granulocytes % (auto) 6.3 %; Lymphocytes # (auto) 0.65 K/uL (1.20-3.40); Monocytes # (auto) 0.44 K/uL (0.11-0.59); Neutrophils # (auto) 9.03 K/uL (1.40-6.50); Tear Drop Cells 1+
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
[2022-12-07 15:19] LABS: Alanine Aminotransferase 29 U/L (7-52); Albumin Globulin Ratio 1.8 (0.9-2); Alkaline Phosphatase 76 U/L (34-104); Aspartate Aminotransferase 17 U/L (13-39); BUN Creatinine Ratio 17.4 (10-20); Blood Urea Nitrogen 31 mg/dl (6-23); Est GFR (African American) 46.4 ml/min; Globulin 2.4 gm/dl (2.5-4.0); Glucose 740 mg/dl (70-99(Fasting)); Total Protein 6.8 gm/dl (6.0-8.3)
[2022-12-07] MEDS ORDERED: SODIUM CHLORIDE 0.9% 500 ML IV ONE ×3 (15:26→19:00)
[2022-12-07 15:59] LABS: Phosphorus 6.5 mg/dl (2.5-4.9)
--- NOTE | 2022-12-07 16:32 | Electrocardiogram Report ---
Test Reason : Blood Pressure : / mmHG Vent. Rate : 113 BPM Atrial Rate : 113 BPM P-R Int : 158 ms QRS Dur : 096 ms QT Int : 346 ms P-R-T Axes : 053 -66 047 degrees QTc Int : 474 ms Sinus tachycardia Incomplete right bundle branch block Left anterior fascicular block Poor R wave progression, consider anterior DE vs. lead placement vs. LVH Inferior infarct , age undetermined Abnormal ECG When compared with ECG of 19-OCT-2021 17:38, No significant change was found Confirmed by Elijah Orr ([id number]) on 12/07/2022 4:31:42 PM Referred By: Confirmed By:Elijah Orr
[2022-12-07] MEDS ORDERED: STAT IV Infusion **Titration per Protocol STA (16:37)
[2022-12-07] MEDS ORDERED: HHS GOAL RANGE 250-350 mg/dl ONE (16:37)
[2022-12-07] MEDS ORDERED: SODIUM CHLORIDE 0.9% 1,000 ML IV SCH (16:45)
[2022-12-07] MEDS ORDERED: NovoLIN-R BOLUS FROM BAG IV ONE ×2 (16:45→17:00)
[2022-12-07] MEDS ORDERED: INSULIN REGULAR 250 UNITS in SODIUM CHLORIDE 0.9% 247.5 ML IV SCH (16:45)
[2022-12-07] MEDS ORDERED: NovoLIN-R INSULIN PER UNIT CHARGE IV STA (16:54)
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
--- NOTE | 2022-12-07 17:16 | CT Scan Report ---
ABDOMEN AND PELVIS CT WITHOUT CONTRAST CT DOSE: 1356.03 mGy.cm HISTORY: Acute kidney injury chris TECHNIQUE: Multiaxial CT images of the abdomen and pelvis were performed without contrast. A dose lo wering technique was utilized adhering to the principles of ALARA. COMPARISON STUDY: Lumbar spine radiographs 05/02/2017. FINDINGS: Trace pericardial effusion. Clear lung bases. No free air. The unenhanced spleen, pancreas, adrenal glands and contracted gallbladder are unremarkable. Unremarkable liver. Mild nonspecific haylee ateral perinephric stranding. No urolithiasis or hydronephrosis. Unremarkable urinary bladder. Athero sclerosis of the aorta. No lymphadenopathy. No bowel obstruction or bowel wall thickening. Normal appendix. [id number] colonic fecal retent ion. Left lower intra-abdominal wall lipoma, 5.5 x 3.8 x 6.7 cm. Unremarkable soft tissues. Numerous chronic thoracolumbar compression deformities with kyphoplasty at T11, L1 and L2. IMPRESSION: 1. No urolith or hydronephrosis. 2. No bowel obstruction. 3. Normal appendix. 4. Additional findings as above. ACT 112: Negative or not required by law. The above report was generated using voice recognition software. It may contain grammatical, syntax o r spelling errors. Electronically signed by: Ricardo Tang M.D. 12/07/2022 5:14 PM
[2022-12-07 17:33] LABS: Adenovirus PCR Not Detected (NotDetected); Bordetella parapertussis PCR Not Detected (NotDetected); Bordetella pertussis PCR Not Detected (NotDetected); Chlamydia pneumoniae PCR Not Detected (NotDetected); Coronavirus 229E PCR Not Detected (NotDetected); Coronavirus CoV-2 (COVID19)PCR Not Detected (NotDetected); Coronavirus HKU1 PCR Not Detected (NotDetected); Coronavirus NL63 PCR Not Detected (NotDetected); Coronavirus OC43PCR Not Detected (NotDetected); Human Metapneumovirus PCR Not Detected (NotDetected); Influenza A PCR Not Detected (NotDetected); Influenza B PCR Not Detected (NotDetected); Mycoplasma pneumoniae PCR Not Detected (NotDetected); Parainfluenza Virus 1 PCR Not Detected (NotDetected); Parainfluenza Virus 2 PCR Not Detected (NotDetected); Parainfluenza Virus 3 PCR Not Detected (NotDetected); Parainfluenza Virus 4 PCR Not Detected (NotDetected); Respiratory Syncytial VirusPCR Not Detected (NotDetected); Rhinovirus/Enterovirus PCR Not Detected (NotDetected)
[2022-12-07 17:59] LABS: Estimated Average Glucose 275 mg/dl; Hemoglobin A1C 11.2 % (4.5-5.6)
[2022-12-07 18:53] LABS: Sodium 137 mmol/L (136-145)
[2022-12-07 18:54] LABS: Anion Gap 10 (3-11); BUN Creatinine Ratio 24.6 (10-20); Blood Urea Nitrogen 35 mg/dl (6-23); Calcium 9.9 mg/dl (8.6-10.3); Carbon Dioxide 25 mmol/L (21-32); Chloride 102 mmol/L (98-107); Est GFR (African American) 60.9 ml/min; Est GFR (Non-African American) 52.6 ml/min; Glucose 347 mg/dl (70-99(Fasting))
[2022-12-07] MEDS ORDERED: PHARMACY GLYCEMIC MGMT CONSULT PRN (19:26)
[2022-12-07] MEDS ORDERED: PENDING D5 1/2NS+20mEq KCL IVF SCH (19:26)
[2022-12-07] MEDS ORDERED: PENDING 1/2NSS+20mEq KCL IVF SCH (19:26)
[2022-12-07] MEDS ORDERED: POTASSIUM CHLORIDE CRTAB 20 MEQ TABCR PO PRN (19:26)
[2022-12-07] MEDS ORDERED: GLUCOSE 40% GEL 15 GM TUBE PO PRN (19:28)
[2022-12-07] MEDS ORDERED: GLUCAGON FOR INJ 1 MG VIAL SQ PRN (19:28)
[2022-12-07] MEDS ORDERED: GLUCOSE 10 TAB/TUBE PO PRN (19:28)
[2022-12-07] MEDS ORDERED: DEXTROSE 50% 50 ML SYRINGE IV PRN (19:28)
[2022-12-07] MEDS ORDERED: CARBOHYDRATES FOR HYPOGLYCEMIA PO PRN (19:28)
--- NOTE | 2022-12-07 19:37 | Communication Note ---
Date of Service: December 07, 2022 Potassium normalized, anion gap has closed, BSG has downtrended less than 200. Bicarb normal. We will switch to basal bolus insulin, patient did take 60 units of long-acting insulin this morning. We will switch to SQ sliding scale at this time. Tachycardia has near normalized following NSS boluses, likely still about 1 to 2 L volume depleted and will continue supplemental maintenance. Hold if any signs of hypoxia develop, no signs of fluid overload lungs are clear on reassessment. Patient pending cardiology eval of stable angina in the morning, continues to be chest pain-free
[2022-12-07] MEDS: pyRIDostigmine bromide 60 MG TAB PO SCH (21:28)
[2022-12-07] MEDS: HEPARIN SOD 5,000 UNIT/0.5 ML VIAL SQ SCH (21:29)
[2022-12-07] MEDS: INSULIN ASPART PER UNIT CHARGE SC SCH (21:31)
[2022-12-08] MEDS: INSULIN ASPART PER UNIT CHARGE SC SCH ×6 (00:17→21:26)
[2022-12-08] MEDS: HEPARIN SOD 5,000 UNIT/0.5 ML VIAL SQ SCH ×3 (06:03→21:18)
[2022-12-08] MEDS ORDERED: ACETAMINOPHEN 325 MG TAB PO PRN (06:29)
[2022-12-08] MEDS: CHOLECALCIFEROL 5,000 UNITS 125 MCG TAB PO SCH (08:25)
[2022-12-08] MEDS: pyRIDostigmine bromide 60 MG TAB PO SCH ×3 (08:26→21:17)
[2022-12-08] MEDS: FEXOFENADINE HCL 180 MG TAB PO SCH (08:26)
[2022-12-08] MEDS: ROSUVASTATIN CALCIUM 20 MG TAB PO SCH (08:26)
[2022-12-08] MEDS: buPROPion SR 150 MG TABCR PO SCH (08:26)
[2022-12-08] MEDS: predniSONE 20 MG TAB PO SCH (08:26)
[2022-12-08] MEDS: FAMOTIDINE 40 MG TABLET PO SCH (08:26)
[2022-12-08] MEDS: ESCITALOPRAM OXALATE 20 MG TAB PO SCH (08:26)
[2022-12-08] MEDS ORDERED: LANTUS PER UNIT CHARGE SQ SCH (09:00)
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
[2022-12-08] MEDS ORDERED: HEPARIN (PORCINE) 1000 UNIT/ML 10 ML (CATH LAB USE ONLY) ONE (11:07)
[2022-12-08] MEDS ORDERED: niCARdipine HCL INJ 2.5 MG/ML 10 ML AMP ONE (11:07)
[2022-12-08] MEDS ORDERED: NITROGLYCERIN/D5W 100MCG/ML 20ML SYR ONE (11:08)
[2022-12-08] MEDS ORDERED: MIDAZOLAM HCL 1 MG/ML 2ML VIAL ONE (11:08)
[2022-12-08] MEDS ORDERED: fentaNYL citrate PF 100 MCG/2 ML VIAL ONE (11:08)
[2022-12-08] MEDS ORDERED: ASPIRIN 81 MG CHEW ONE (11:21)
--- NOTE | 2022-12-08 11:49 | Pre Anesthesia Assessment ---
Date of Service December 08, 2022 Pre Sedation Assessment Vital Signs Temp Pulse Pulse Resp BP BP Pulse Ox 12/08/22 11:12 87 18 123/83 94 12/08/22 09:49 92 H 12/08/22 07:40 97.9 F 88 18 152/91 H 96 12/08/22 06:18 97.3 F L 95 H 16 147/80 H 94 12/08/22 04:00 81 16 121/58 L 96 12/08/22 00:18 81 18 111/69 95 12/07/22 23:17 89 12/07/22 21:50 12/07/22 22:20 12/07/22 22:20 93 H 18 120/85 95 12/07/22 20:03 96 H 12/07/22 18:00 100 H 17 133/81 94 12/07/22 15:41 113 H 12/07/22 15:38 111 H 18 160/101 H 93 12/07/22 15:32 12/07/22 13:54 97.3 F L 116 H 20 153/84 H 95 Pulse Ox O2 Del Method O2 Del Method FiO2 12/08/22 11:12 Room Air 12/08/22 09:49 12/08/22 07:40 Room Air 12/08/22 06:18 Room Air 12/08/22 04:00 Room Air 12/08/22 00:18 Room Air 12/07/22 23:17 12/07/22 21:50 21 12/07/22 22:20 95 Room Air 12/07/22 22:20 Room Air 12/07/22 20:03 12/07/22 18:00 Room Air 12/07/22 15:41 12/07/22 15:38 Room Air 12/07/22 15:32 Room Air 12/07/22 13:54 Room Air Cardiovascular RRR, no murmur, no edema Respiratory normal respiratory effort, lungs clear to auscultation Pre-Sedation Airway Assessment Smoking Status: Current some day smoker Hx Sleep Apnea: No Hx Difficult Intubation: No Short, Thick Neck: No Thyromental Distance: > or= 3.5 Finger Breadths Oral Cavity: + WNL Mallampati Class: II ASA: ASA2 NPO Status Date of Last Intake of Fluids: 12/07/22 Time of Last Intake of Fluids: 20:00 Date of Last Intake of Solid Food: 12/07/22 Time of Last Intake of Solid Foods: 20:00 Procedure Planning Contraindications for Sedation: none Current Medications Reviewed: Yes Notes The planned sedation has been discussed with the patient. Informed Consent was obtained. I have identified the patient, determined the appropriateness of sedation and have assessed the patient immediately prior to the procedure. All medicine(s) and interventions are by my order.
--- NOTE | 2022-12-08 12:10 | Post Anesthesia Assessment ---
Date of Service December 08, 2022 Post Sedation Assessment Vital Signs Temp Pulse Pulse Resp BP BP Pulse Ox 12/08/22 11:12 87 18 123/83 94 12/08/22 09:49 92 H 12/08/22 07:40 97.9 F 88 18 152/91 H 96 12/08/22 06:18 97.3 F L 95 H 16 147/80 H 94 12/08/22 04:00 81 16 121/58 L 96 12/08/22 00:18 81 18 111/69 95 12/07/22 23:17 89 12/07/22 21:50 12/07/22 22:20 12/07/22 22:20 93 H 18 120/85 95 12/07/22 20:03 96 H 12/07/22 18:00 100 H 17 133/81 94 12/07/22 15:41 113 H 12/07/22 15:38 111 H 18 160/101 H 93 12/07/22 15:32 12/07/22 13:54 97.3 F L 116 H 20 153/84 H 95 Pulse Ox O2 Del Method O2 Del Method FiO2 12/08/22 11:12 Room Air 12/08/22 09:49 12/08/22 07:40 Room Air 12/08/22 06:18 Room Air 12/08/22 04:00 Room Air 12/08/22 00:18 Room Air 12/07/22 23:17 12/07/22 21:50 21 12/07/22 22:20 95 Room Air 12/07/22 22:20 Room Air 12/07/22 20:03 12/07/22 18:00 Room Air 12/07/22 15:41 12/07/22 15:38 Room Air 12/07/22 15:32 Room Air 12/07/22 13:54 Room Air Recovery Score Activity: Moves 4 extremities Respiration: Deep Breath/Cough Circulation: +/-20% PreAnes Value Consciousness: Fully Awake Oxygen Saturation: O2 needed for >90% Discharge Sedation Level of Care: Fast Track Phase II Post Sedation Plan On clinical assessment, the patient appears to have tolerated the sedation without complications. Patient is recovering as anticipated. Patient will continue to be monitored by nursing and may be discharged when sedation discharge criteria are met per below protocol. Upon Completions of procedure up to 15 minutes continue every 5 minute vital signs and the P.A.R. score; then discharge to a Phase I or Fast Track to Phase II per the following guidelines: * Discharge Patient to appropriate Phase II area if PAR is 8 or greater or return to pre- procedure baseline. The post - procedure orders will be as directed. * If PAR score is less than 8 or not return to pre-procedure baseline then patient will follow Phase I monitoring till PAR is reached for Phase II. The Phase I may be done in procedure room or may call to secure a Phase I area. * If naloxone or flumazenil are used for reversal, hold in Phase I for continued monitoring from when last reversal dose was given for a minimum of 60 minutes or longer pending the nurse and/or physician discretion of patient condition before discharge to Phase II. Please call the Sedation Physician to re-evaluate and complete post-note for discharge to Phase II area. Do NOT discharge from procedure sedation or Phase 1 until post- sedation evaluation note is complete by procedure /sedation MD Sedation Discharge Instructions to be given to the patient at discharge to home.
--- NOTE | 2022-12-08 12:17 | Cardiac Catheterization ---
[facility] Data: Home Care Assistant Cardiac Status Clinical evaluation leading to the procedure CAD Presenation: Sx unlikely to be ischemic and Unstable angina Anginal Classification: CCS III Diagnostic Physicians Name: Adrian Martin MD Closure Device Recommendations: Medical Therapy and/or Counseling Cardiac Cath Procedure Full Procedure Date December 08, 2022 Pre-Procedure Diagnosis Pre-Procedure Diagnosis: Angina AUC Score AUC Score: 7 Post-Procedure Diagnosis Post-Procedure Diagnosis: Normal Coronary Arteries and Normal Intracardiac Pressures Procedure(s) Performed Procedure(s) Performed: Coronary Angiography and Left Heart Cath Book Critic Adrian Martin MD Selenium Plant Operator(s) Dilip Estimated Blood Loss Estimated Blood Loss: 10 Medication(s) Medication(s): Fentanyl, Heparin, Lidocaine 1%, Nicardipine, Nitroglycerin and Versed Summary of Findings Indication: Suspected unstable angina Access: 6 Fr right radial artery Catheters: [place] Findings: LM -normal caliber, no significant disease LAD -medium caliber no significant disease, distal vessel wraps around apex. Medium D1 without disease. 20% ostial medium caliber D2. Circumflex -large caliber, codominant no significant disease. Medium OM without disease. RCA -medium caliber, codominant, angiographically normal LVEDP - 11 Arterial Closure: TR band Summary: 1. Essentially normal coronary arteries angiographically 2. Normal intracardiac filling pressure Recommendations: Continued ASCVD risk factor modification Hemodynamics Rest Ao:: 121/79/107 Final Ao: 120/72/94 LV: 123/11 Recommendations Recommendations: Medical Therapy and/or Counseling Specimens Specimens: None Radiation Exposure (mGy) 791 Contrast (mls) 54 Anesthesia Moderate [id number] Procedural Complication(s) None Disposition Home Care Assistant Holding/Recovery I attest to the content of the Intraoperative Record and any orders documented therein. Any exceptions are noted below. [facility] Card Cath Procedure Codes Cardiac Catheterization Procedure 1: Cardiovascular Cath Procedures: 49237 Coronaries and LHC (+/-LV) Moderate Sedation Procedure 1: Sedation/Anesthesia: 49862 Mod Sedation by the same physician;Init15 Min Child Age 5 & Up PG Care Time/CCT Total # of Minutes Spent Total Time Spent with Patient: Total time spent is greater than 50% in coordination of care (as documented) at patient's floor/unit and/or counseling patient:
[2022-12-08] MEDS ORDERED: LANTUS PER UNIT CHARGE SQ ONE (13:00)
[2022-12-08] MEDS: SODIUM CHLORIDE 0.9% 1,000 ML IV SCH ×2 (13:03→23:21)
--- NOTE | 2022-12-08 13:12 | Pharmacy Report ---
Pharmacy Glycemic Short Note 2 - Date of Service December 08, 2022 - Glycemic Short BSG Results (Last 24 hours): 12/07/22 12/07/22 12/07/22 14:10 16:13 17:02 Glucose 740 H* POC Glucose 471 H* 443 H* 12/07/22 12/07/22 12/07/22 17:42 18:08 19:01 Glucose 347 H* POC Glucose 284 H 199 H 12/07/22 12/08/22 12/08/22 21:28 00:15 03:47 Glucose POC Glucose 285 H 123 H 95 12/08/22 12/08/22 07:53 12:53 Glucose POC Glucose 120 H 200 H OUTPATIENT ANTIDIABETIC REGIMEN: * Tresiba 60 units SC qAM * Novolog 20 units SC TIDM HbA1c: 11.2% (12/07/22) ASSESSMENT: * HS is a 62 year old male who presented to [facility] ED on 12/07/22 with complaints of generalized weakness, shortness of breath, and chest pain * Patient subsequently found to have BSG > 700 mg/dL, mildly elevated anion gap of 12, normal serum bicarbonate, calculated osmolality of 295 * Insulin infusion initiated in ED, but discontinued after ~3 hours as BSGs trended down rapidly and patient had given home Tresiba earlier that day * NPO after midnight for cardiac catheterization, now ordered a diet with lunch today * Will give ~80% of home basal and continue weight-based stress of 3 Novolog * Ordered prednisone 40 mg PO daily PLAN FOR INPATIENT GLYCEMIC CONTROL: * Basal insulin * Lantus 50 units SQ daily * Bolus insulin * NovoLog per scale ACHS or Q6hrs while NPO * Goal Range: Low 110 mg/dL - High 140 mg/dL * Correction Factor: 15 mg/dL/unit * Nutritional / Prandial insulin per carb ratio of 1 unit per 5 grams CHO consumed
--- NOTE | 2022-12-08 21:10 | Hospitalist Progress Note ---
Date of Service December 08, 2022 Assessment & Plan (1) Hyperosmolar hyperglycemic state (HHS): Plan: resolved with customary Rx including insulin infusion, fluids, etc. now off insulin drip pharmacy glycemic team managing basal-bolus regimen a1c noted (11.2%) (2) Stable angina: Plan: ruled out s/p heart cath today - appreciate cardiology assistance essentially normal coronaries (diagonal artery x 1 with 20% plaque only) cause of presenting chest pain? nothing to suggest pericarditis doubt musculoskeletal GI?? (radiation of pain to the back) pulmonary? reassess for recurrent symptoms and if present then CTA chest - r/o PE, etc. (3) Diabetes mellitus: Plan: uncontrolled as in #1 above (4) BRODIE (acute kidney injury): Plan: Peak Cr 1.78 now 1.2 resolving cont fluids thru tonight, then BMP in am BRODIE 2nd to #1 (5) Cerebral vascular malformation: Plan: Cerebrovascular malformation - Follows with neurology Has some deficits with processing speed, ptosis, intermittent diplopia, generalized weakness. Acetylcholine receptor antibodies not present on prior testing. 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 Updated MRI with no changes. Due to vision changes and signs and symptoms consistent with seronegative myasthenia patient was recommended for repetitive stimulation EMG. Due to self reported icepack test response he was started on Mestinon 30 mg 3 times daily. This is continued on admit Continue armodafinil does not appear to be in a "myasthenia crisis" (6) Adrenal insufficiency: Plan: Adrenal insufficiency - Chronically on steroids for history of psoriatic arthritis Continue prednisone 40mg daily - he is slowly weaning this by 1-2mg each week no signs of adrenal crisis (7) Hyperlipemia: Plan: Continue statin (8) Hypertension: Plan: Losartan held for BRODIE spironolactone held for BRODIE/hyperkalemia cont to hold both - resume at d/c (9) Diastolic CHF: Plan: compensated but would stop IV fluids tonight (10) Anxiety and depression: Plan: Continue bupropion Continue lexapro (11) GERD (gastroesophageal reflux disease): Plan: PPI cause of chest pain?? consider d/c pepcid and changing to protonix at d/c (12) Psoriatic arthritis: Plan: Psoriatic arthritis Steroids as noted above Plan DVT proph- SC Heparin monitor overnight home tomorrow if no recurrent chest symptoms Admission and Anticipated Discharge Date Admission Date: December 07, 2022 Subjective saw patient post heart-cath he was resting comfortably in bed mentioned he felt sweaty no chest pain since admission the pain that brought him to the hospital had traveled into the L arm and into the upper back no abd pain, however had L arm tingling as well no pleuritic pain of the chest no recent illness since the cath he has walked in the room - no cp, no dyspnea noted off insulin infusion tele overnight - NSR Review of Systems Review of Systems: gen - no fevers cv - no orthopnea, no chest pain pulm - no cough GI - no abd pain/nausea/emesis today Physical Exam Physical Exam: gen - NAD, pleasant, obese mouth - MMM, no thrush neck - no JVD chest - no reproducible chest wall tenderness to palpation heart - RRR, s1 s2, no murmur or rub lungs - CTA b/l, no rales abd - soft NT ND BS+ ext - no edema, pulses 2+ b/l vascular - right radial artery - no hematoma Results & Data Results & Data Vital Signs (Past 12 Hours) Vital Signs Temp Pulse Pulse Resp BP BP Pulse Ox 12/08/22 19:00 36.3 C L 76 18 127/78 96 12/08/22 16:00 98 H 12/08/22 15:27 36.4 C L 93 H 18 134/80 94 12/08/22 14:40 36.8 C 92 H 18 134/80 96 12/08/22 14:06 36.8 C 93 H 18 131/77 95 12/08/22 13:35 36.7 C 95 H 18 142/90 H 95 12/08/22 13:22 36.9 C 97 H 18 151/89 H 97 12/08/22 13:05 36.8 C 94 H 18 143/97 H 97 12/08/22 12:50 36.9 C 95 H 18 140/85 96 12/08/22 12:37 89 16 133/87 95 12/08/22 12:22 90 16 126/82 94 12/08/22 11:12 87 18 123/83 94 12/08/22 09:49 92 H O2 Del Method 12/08/22 19:00 Room Air 12/08/22 16:00 12/08/22 15:27 Room Air 12/08/22 14:40 Room Air 12/08/22 14:06 Room Air 12/08/22 13:35 Room Air 12/08/22 13:22 Room Air 12/08/22 13:05 Room Air 12/08/22 12:50 Room Air 12/08/22 12:37 Room Air 12/08/22 12:22 Room Air 12/08/22 11:12 Room Air 12/08/22 09:49 Laboratory Results Laboratory Results - last 48 hr 12/07/22 12/07/22 12/07/22 14:10 14:10 14:10 WBC 10.89 H RBC 4.64 L Hgb 14.2 Hct 41.8 L MCV 90.1 MCH 30.6 MCHC 34.0 RDW Std Deviation 51.4 H RDW Coeff of Miesha 15.5 H Plt Count 281 MPV 10.9 Immature Gran % (Auto) 6.3 Neut % (Auto) 83.0 Lymph % (Auto) 6.0 Lanier % (Auto) 4.0 Eos % (Auto) 0.0 Baso % (Auto) 0.7 Neut # (Auto) 9.03 H Lymph # (Auto) 0.65 L Lanier # (Auto) 0.44 Eos # (Auto) 0.00 Baso # (Auto) 0.08 Immature Gran # (Auto) 0.69 H Tear Drop Cells 1+ PT 10.0 INR 0.9 APTT 25.2 PTT Ratio 0.9 Sodium 127 L Potassium 6.0 H Chloride 94 L Carbon Dioxide 21 Anion Gap 12 H BUN 31 H Creatinine 1.78 H Est Cr Clr Drug Dosing Not Reportable Est GFR ( Amer) 46.4 Est GFR (Non-Af Amer) 40.0 BUN/Creatinine Ratio 17.4 Glucose 740 H* POC Glucose Estimat Average Glucose Hemoglobin A1c Osmolality Calcium 10.2 Phosphorus 6.5 H Magnesium 2.0 Total Bilirubin 0.7 AST 17 ALT 29 Alkaline Phosphatase 76 Troponin I High Sens 7.4 Total Protein 6.8 Albumin 4.4 Globulin 2.4 L Albumin/Globulin Ratio 1.8 Adenovirus (PCR) B. pertussis DNA (PCR) B.parapertussis DNA PCR C. pneumoniae DNA (PCR) Coronavirus OC43 (PCR) Coronavirus HKU1 (PCR) Coronavirus 229E (PCR) SARS-CoV-2 (PCR) Coronavirus NL63 (PCR) Human Metapneumovir PCR Influenza Type A (PCR) Influenza Type B (PCR) M. pneumoniae (PCR) Parainfluenza 1 (PCR) Parainfluenza 2 (PCR) Parainfluenza 3 (PCR) Parainfluenza 4 (PCR) RSV (PCR) Entero/Rhino (PCR) 12/07/22 12/07/22 12/07/22 14:10 14:14 16:13 WBC RBC Hgb Hct MCV MCH MCHC RDW Std Deviation RDW Coeff of Miesha Plt Count MPV Immature Gran % (Auto) Neut % (Auto) Lymph % (Auto) Lanier % (Auto) Eos % (Auto) Baso % (Auto) Neut # (Auto) Lymph # (Auto) Lanier # (Auto) Eos # (Auto) Baso # (Auto) Immature Gran # (Auto) Tear Drop Cells PT INR APTT PTT Ratio Sodium Potassium Chloride Carbon Dioxide Anion Gap BUN Creatinine Est Cr Clr Drug Dosing Est GFR ( Amer) Est GFR (Non-Af Amer) BUN/Creatinine Ratio Glucose POC Glucose 471 H* Estimat Average Glucose 275 Hemoglobin A1c 11.2 H Osmolality 321 H Calcium Phosphorus Magnesium Total Bilirubin AST ALT Alkaline Phosphatase Troponin I High Sens Total Protein Albumin Globulin Albumin/Globulin Ratio Adenovirus (PCR) B. pertussis DNA (PCR) B.parapertussis DNA PCR C. pneumoniae DNA (PCR) Coronavirus OC43 (PCR) Coronavirus HKU1 (PCR) Coronavirus 229E (PCR) SARS-CoV-2 (PCR) Coronavirus NL63 (PCR) Human Metapneumovir PCR Influenza Type A (PCR) Influenza Type B (PCR) M. pneumoniae (PCR) Parainfluenza 1 (PCR) Parainfluenza 2 (PCR) Parainfluenza 3 (PCR) Parainfluenza 4 (PCR) RSV (PCR) Entero/Rhino (PCR) 12/07/22 12/07/22 12/07/22 16:15 17:02 17:42 WBC RBC Hgb Hct MCV MCH MCHC RDW Std Deviation RDW Coeff of Miesha Plt Count MPV Immature Gran % (Auto) Neut % (Auto) Lymph % (Auto) Lanier % (Auto) Eos % (Auto) Baso % (Auto) Neut # (Auto) Lymph # (Auto) Lanier # (Auto) Eos # (Auto) Baso # (Auto) Immature Gran # (Auto) Tear Drop Cells PT INR APTT PTT Ratio Sodium 137 D Potassium 4.0 D Chloride 102 Carbon Dioxide 25 Anion Gap 10 BUN 35 H Creatinine 1.42 H D Est Cr Clr Drug Dosing Not Reportable Est GFR ( Amer) 60.9 Est GFR (Non-Af Amer) 52.6 BUN/Creatinine Ratio 24.6 H Glucose 347 H* POC Glucose 443 H* Estimat Average Glucose Hemoglobin A1c Osmolality Calcium 9.9 Phosphorus Magnesium Total Bilirubin AST ALT Alkaline Phosphatase Troponin I High Sens Total Protein Albumin Globulin Albumin/Globulin Ratio Adenovirus (PCR) Not Detected B. pertussis DNA (PCR) Not Detected B.parapertussis DNA PCR Not Detected C. pneumoniae DNA (PCR) Not Detected Coronavirus OC43 (PCR) Not Detected Coronavirus HKU1 (PCR) Not Detected Coronavirus 229E (PCR) Not Detected SARS-CoV-2 (PCR) Not Detected Coronavirus NL63 (PCR) Not Detected Human Metapneumovir PCR Not Detected Influenza Type A (PCR) Not Detected Influenza Type B (PCR) Not Detected M. pneumoniae (PCR) Not Detected Parainfluenza 1 (PCR) Not Detected Parainfluenza 2 (PCR) Not Detected Parainfluenza 3 (PCR) Not Detected Parainfluenza 4 (PCR) Not Detected RSV (PCR) Not Detected Entero/Rhino (PCR) Not Detected 12/07/22 12/07/22 12/07/22 18:08 19:01 21:28 WBC RBC Hgb Hct MCV MCH MCHC RDW Std Deviation RDW Coeff of Miesha Plt Count MPV Immature Gran % (Auto) Neut % (Auto) Lymph % (Auto) Lanier % (Auto) Eos % (Auto) Baso % (Auto) Neut # (Auto) Lymph # (Auto) Lanier # (Auto) Eos # (Auto) Baso # (Auto) Immature Gran # (Auto) Tear Drop Cells PT INR APTT PTT Ratio Sodium Potassium Chloride Carbon Dioxide Anion Gap BUN Creatinine Est Cr Clr Drug Dosing Est GFR ( Amer) Est GFR (Non-Af Amer) BUN/Creatinine Ratio Glucose POC Glucose 284 H 199 H 285 H Estimat Average Glucose Hemoglobin A1c Osmolality Calcium Phosphorus Magnesium Total Bilirubin AST ALT Alkaline Phosphatase Troponin I High Sens Total Protein Albumin Globulin Albumin/Globulin Ratio Adenovirus (PCR) B. pertussis DNA (PCR) B.parapertussis DNA PCR C. pneumoniae DNA (PCR) Coronavirus OC43 (PCR) Coronavirus HKU1 (PCR) Coronavirus 229E (PCR) SARS-CoV-2 (PCR) Coronavirus NL63 (PCR) Human Metapneumovir PCR Influenza Type A (PCR) Influenza Type B (PCR) M. pneumoniae (PCR) Parainfluenza 1 (PCR) Parainfluenza 2 (PCR) Parainfluenza 3 (PCR) Parainfluenza 4 (PCR) RSV (PCR) Entero/Rhino (PCR) 12/08/22 12/08/22 12/08/22 00:15 03:47 07:53 WBC RBC Hgb Hct MCV MCH MCHC RDW Std Deviation RDW Coeff of Miesha Plt Count MPV Immature Gran % (Auto) Neut % (Auto) Lymph % (Auto) Lanier % (Auto) Eos % (Auto) Baso % (Auto) Neut # (Auto) Lymph # (Auto) Lanier # (Auto) Eos # (Auto) Baso # (Auto) Immature Gran # (Auto) Tear Drop Cells PT INR APTT PTT Ratio Sodium Potassium Chloride Carbon Dioxide Anion Gap BUN Creatinine Est Cr Clr Drug Dosing Est GFR ( Amer) Est GFR (Non-Af Amer) BUN/Creatinine Ratio Glucose POC Glucose 123 H 95 120 H Estimat Average Glucose Hemoglobin A1c Osmolality Calcium Phosphorus Magnesium Total Bilirubin AST ALT Alkaline Phosphatase Troponin I High Sens Total Protein Albumin Globulin Albumin/Globulin Ratio Adenovirus (PCR) B. pertussis DNA (PCR) B.parapertussis DNA PCR C. pneumoniae DNA (PCR) Coronavirus OC43 (PCR) Coronavirus HKU1 (PCR) Coronavirus 229E (PCR) SARS-CoV-2 (PCR) Coronavirus NL63 (PCR) Human Metapneumovir PCR Influenza Type A (PCR) Influenza Type B (PCR) M. pneumoniae (PCR) Parainfluenza 1 (PCR) Parainfluenza 2 (PCR) Parainfluenza 3 (PCR) Parainfluenza 4 (PCR) RSV (PCR) Entero/Rhino (PCR) 12/08/22 12/08/22 12/08/22 08:31 12:53 16:18 WBC RBC Hgb Hct MCV MCH MCHC RDW Std Deviation RDW Coeff of Miesha Plt Count MPV Immature Gran % (Auto) Neut % (Auto) Lymph % (Auto) Lanier % (Auto) Eos % (Auto) Baso % (Auto) Neut # (Auto) Lymph # (Auto) Lanier # (Auto) Eos # (Auto) Baso # (Auto) Immature Gran # (Auto) Tear Drop Cells PT INR APTT PTT Ratio Sodium Potassium Chloride Carbon Dioxide Anion Gap BUN Creatinine Est Cr Clr Drug Dosing Est GFR ( Amer) Est GFR (Non-Af Amer) BUN/Creatinine Ratio Glucose POC Glucose 200 H 239 H Estimat Average Glucose Hemoglobin A1c Osmolality Calcium Phosphorus Magnesium Total Bilirubin AST ALT Alkaline Phosphatase Troponin I High Sens 8.6 Total Protein Albumin Globulin Albumin/Globulin Ratio Adenovirus (PCR) B. pertussis DNA (PCR) B.parapertussis DNA PCR C. pneumoniae DNA (PCR) Coronavirus OC43 (PCR) Coronavirus HKU1 (PCR) Coronavirus 229E (PCR) SARS-CoV-2 (PCR) Coronavirus NL63 (PCR) Human Metapneumovir PCR Influenza Type A (PCR) Influenza Type B (PCR) M. pneumoniae (PCR) Parainfluenza 1 (PCR) Parainfluenza 2 (PCR) Parainfluenza 3 (PCR) Parainfluenza 4 (PCR) RSV (PCR) Entero/Rhino (PCR) PG Care Time/CCT Total # of Minutes Spent Total Time Spent with Patient: Total time spent is greater than 50% in coordination of care (as documented) at patient's floor/unit and/or counseling patient: Coding Level of Care Code 61890 SUB INP/OBS CARE 2/35MIN Diagnoses Hyperosmolar hyperglycemic state (HHS) E11.00 Stable angina I20.89 Diabetes mellitus E11.9 BRODIE (acute kidney injury) N17.9 Cerebral vascular malformation Q28.3 Adrenal insufficiency E27.40 Hyperlipemia E78.5 Hypertension I10 Diastolic CHF I50.30 Anxiety and depression F41.9; F32.9 GERD (gastroesophageal reflux disease) K21.9 Psoriatic arthritis L40.50
[2022-12-09] MEDS ORDERED: INSULIN ASPART PER UNIT CHARGE SC SCH (02:00)
[2022-12-09] MEDS: HEPARIN SOD 5,000 UNIT/0.5 ML VIAL SQ SCH ×2 (05:57→15:01)
[2022-12-09 07:29] LABS: Hematocrit (blood only) 39.4 % (42.0-52.0); Hemoglobin 13.1 g/dl (14.0-18.0); Mean Corpuscular Hemoglobin 30.3 pg (25.0-34.0); Mean Corpuscular Hgb Conc 33.2 g/dL (32.0-36.0); Mean Corpuscular Volume 91.2 fL (80.0-100.0); Mean Platelet Volume 10.1 fL (9.4-12.4); Platelet Count 245 K/uL (130-400); RDW Coefficient of Variation 15.3 % (11.5-14.5); RDW Standard Deviation 51.1 fL (36.4-46.3); Red Blood Count 4.32 M/uL (4.70-6.10); White Blood Count 10.16 K/ul (4.8-10.8)
[2022-12-09 07:57] LABS: BUN Creatinine Ratio 25.3 (10-20); Creatinine Clr Calc Pharmacy 101.1 ml/min; Est GFR (African American) 107.2 ml/min; Est GFR (Non-African American) 92.5 ml/min; Potassium 3.6 mmol/L (3.5-5.1)
[2022-12-09] MEDS: INSULIN ASPART PER UNIT CHARGE SC SCH ×3 (08:46→17:42)
[2022-12-09] MEDS: buPROPion SR 150 MG TABCR PO SCH (08:47)
[2022-12-09] MEDS: CHOLECALCIFEROL 5,000 UNITS 125 MCG TAB PO SCH (08:48)
[2022-12-09] MEDS: FEXOFENADINE HCL 180 MG TAB PO SCH (08:48)
[2022-12-09] MEDS: pyRIDostigmine bromide 60 MG TAB PO SCH ×2 (08:48→15:00)
[2022-12-09] MEDS: FAMOTIDINE 40 MG TABLET PO SCH (08:48)
[2022-12-09] MEDS: predniSONE 20 MG TAB PO SCH (08:48)
[2022-12-09] MEDS: ESCITALOPRAM OXALATE 20 MG TAB PO SCH (08:48)
[2022-12-09] MEDS: ROSUVASTATIN CALCIUM 20 MG TAB PO SCH (08:48)
[2022-12-09] MEDS ORDERED: LANTUS PER UNIT CHARGE SQ SCH (09:00)
--- NOTE | 2022-12-09 11:38 | Pharmacy Report ---
Pharmacy Glycemic Short Note 2 - Date of Service December 09, 2022 - Glycemic Short BSG Results (Last 24 hours): 12/08/22 12/08/22 12/08/22 12:53 16:18 20:12 Glucose POC Glucose 200 H 239 H 107 H 12/09/22 12/09/22 12/09/22 01:28 07:09 07:24 Glucose 90 POC Glucose 95 90 12/09/22 11:10 Glucose POC Glucose 99 OUTPATIENT ANTIDIABETIC REGIMEN: * Tresiba 60 units SC qAM * Novolog 20 units SC TIDM HbA1c: 11.2% (12/07/22) ASSESSMENT: 12/09/22: * HS received 78 units of insulin yesterday (50 units of basal and 28 units of prandial/correctional bolus) * Fasting BSG of 90 mg/dL today, will decrease basal by 20% * Lunchtime BSG also on low side at 99 mg/dL today, so will loosen Novolog parameters today * Remains on prednisone 40 mg PO daily 12/08/22: * HS is a 62 year old male who presented to [facility] ED on 12/07/22 with complaints of generalized weakness, shortness of breath, and chest pain * Patient subsequently found to have BSG > 700 mg/dL, mildly elevated anion gap of 12, normal serum bicarbonate, calculated osmolality of 295 * Insulin infusion initiated in ED, but discontinued after ~3 hours as BSGs trended down rapidly and patient had given home Tresiba earlier that day * NPO after midnight for cardiac catheterization, now ordered a diet with lunch today * Will give ~80% of home basal and continue weight-based stress of 3 Novolog * Ordered prednisone 40 mg PO daily PLAN FOR INPATIENT GLYCEMIC CONTROL: * Basal insulin - decrease * Lantus 40 units SQ daily * Bolus insulin - loosen * NovoLog per scale ACHS or Q6hrs while NPO * Goal Range: Low 110 mg/dL - High 150 mg/dL * Correction Factor: 20 mg/dL/unit * Nutritional / Prandial insulin per carb ratio of 1 unit per 6 grams CHO consumed
[2022-12-09] MEDS ORDERED: OPTIRAY 320 500ml IV ONE (14:44)
--- NOTE | 2022-12-09 15:35 | CT Scan Report ---
CT ANGIOGRAM OF THE CHEST CLINICAL HISTORY: Atypical chest pain. Dyspnea. COMPARISON STUDY: Chest x-ray dated 12/07/2022. TECHNIQUE: Following the IV administration of 116 cc of Optiray 320, CT angiogram of the chest was pe rformed from the upper abdomen to the thoracic inlet utilizing the pulmonary embolus protocol. Images are reviewed in the axial, sagittal, and coronal planes. 3-D MIPS images are created and assessed. I V contrast was administered without complication. A dose lowering technique was utilized adhering to the principles of ALARA. CT DOSE: 890.56 mGy.cm FINDINGS: Thyroid: Mildly enlarged and heterogeneous. Thoracic aorta: There is mild atherosclerotic calcification of the thoracic aorta, which is normal in caliber and demonstrates standard 3-vessel arch anatomy. No dissection is seen. Pulmonary vasculature: The pulmonary trunk is normal in caliber. There are no filling defects identif ied in main, lobar, or segmental pulmonary branches to suggest pulmonary embolus. There is likely a s mall amount of embolized kyphoplasty cement within peripheral branches the right lower lobe pulmonary artery seen on axial image #83. Heart: The heart is enlarged noting trace pericardial effusion. There are coronary artery calcificati ons. Lungs and pleural spaces: Evaluation of the lung parenchyma is modestly degraded by motion artifact. There is mild bibasilar scarring/atelectasis. No airspace consolidation or pleural effusion is identi fied. The trachea and central airways are clear. Mediastinum: There is no mediastinal lymphadenopathy. Ele: Clear. Axillae: There is no axillary lymphadenopathy. Upper abdomen: There is a small hiatal hernia. The liver appears enlarged and steatotic. Skeletal structures: The skeletal structures are osteopenic. No lytic or blastic bony lesions are see n. There is a chronic compression deformity of T11 with evidence of previous vertebroplasty. There is also a chronic-appearing compression deformity of T6. There are chronic/healed bilateral rib fractur es. IMPRESSION: 1. There is no evidence of pulmonary embolus in the main, lobar, or segmental pulmonary arteries. 2. Cardiomegaly. 3. There is no airspace consolidation or pleural effusion. 4. Additional findings as above. ACT 112: Negative or not required by law. Electronically signed by: Ritchie Wellington M.D. 12/09/2022 3:34 PM
--- NOTE | 2022-12-09 17:13 | Discharge Summary ---
Date of Service December 09, 2022 Admission HPI Per Admitting Provider Mr. Ramos is a 62-year-old male with a past medical history of type II DM with retinopathy, hypertension, hyperlipidemia, former tobacco use, adrenal insufficiency, long-term steroid use, LETICIA, peripheral neuropathy, cerebral vascular malformation who presented to the ER for evaluation of chest pain and who was found to have a BSG of 740. Chronic prednisone use, thanks for psoriatic arthritis. Prior DM2 regimen: 50 units Tresiba, 15 units NovoLog 3 times daily. Did not tolerate Ozempic/Trulicity. Cannot afford Mounjaro. Did not tolerate metformin due to nausea/diarrhea Roxy Ramos reports he has had on and off chest discomfort with intermittent dyspnea which started yesterday morning. Called of sick from work from fatigue. Went to work today and seemed to have more central chest and L arm discomfort so he called a friend who i sa thresher broomcorn and an EKG at the time which did not show any acute changes. Due to his recurrent exertional symptoms and poorly controlled DM was recommended to come to the ER. Did not realize his blood sugar was so high. Has been slowly tapering prednisone due to arthritis. Has been on medicine for myesthenia and prenisone for psoriatic arthrotis. Has fatigue at baseline, so hasn't noticed increases but the dyspnea was very unusual for him Dyspnea and chest pain were associated with each other and brought out by exertion. His CGM sensor goes up to 400s, has been high today but doesn't read above that. Notes that he only had eggs today, but then had some fried chicken. Is not sure why it is so high. Took his AM long acting, did not take his short acting after eating. Adjusts his long acting as needed but currently 60 LA 20TID short acting. Reports he used to have a hx of dCHF but stopped amlodipine 10mg a year ago and did nto have problems with fluid overload after that. No history of orthopnea/pulm edema despite grade 1 DD never has sx of this. Denies dysuria, denies polyuria. No fever, chills, sweats Has noticed recurrent and intermittent chest pain and dyspnea on exertion concerning him. Did discuss progression to cardiac cath at time of last stress echo which was normal, patient has followed Dr. Cotto in the past. Medical History: Reviewed Medications: Reviewed Surgical History: Reviewed Family history: Reviewed Allergies: Reviewed Social History: Reviewed Code Status: Full Code Discharge Exam gen - NAD, pleasant, obese mouth - MMM, no thrush neck - no JVD chest - no reproducible chest wall tenderness to palpation heart - RRR, s1 s2, no murmur or rub lungs - CTA b/l, no rales abd - soft NT ND BS+ ext - no edema, pulses 2+ b/l vascular - right radial artery - no hematoma Discharge Data Allergies Allergy/AdvReac Type Severity Reaction Status Date / Time latex Allergy Mild ITCHY Verified 12/07/22 15:58 tirzepatide [From Mounjaro] AdvReac Severe Abdominal Verified 12/07/22 15:58 Pain Consultations 12/07/22 16:48 ED Decision to Admit Stat 12/07/22 19:26 Consult Cardiology Routine Procedures Performed Operation Date: 12/08/22 11:00 Actual Procedures s Cineradiography w/Routine Exam - Adrian Martin MD p Cath, Left with Cors and Vent - Adrian Martin MD Ordered Studies 12/07/22 16:03 CT abd pelvis wo con Stat 12/08/22 11:35 CL Cath Imgs for PACS use only Stat 12/09/22 13:09 CT angio chest PE protocol Routine Diabetes Follow up Diabetes Follow-up Needed for HgbA1c >9% Hospital Course (1) Hyperosmolar hyperglycemic state (HHS): resolved with customary Rx including insulin infusion, fluids, etc. now off insulin drip pharmacy glycemic team managing basal-bolus regimen a1c noted (11.2%) (2) Stable angina: ruled out s/p heart cath today - appreciate cardiology assistance essentially normal coronaries (diagonal artery x 1 with 20% plaque only) cause of presenting chest pain? nothing to suggest pericarditis doubt musculoskeletal GI?? (radiation of pain to the back) pulmonary? reassess for recurrent symptoms and if present then CTA chest - r/o PE, etc. (3) Diabetes mellitus: uncontrolled as in #1 above (4) BRODIE (acute kidney injury): Peak Cr 1.78 now 1.2 resolving cont fluids thru tonight, then BMP in am BRODIE 2nd to #1 (5) Cerebral vascular malformation: Cerebrovascular malformation - Follows with neurology Has some deficits with processing speed, ptosis, intermittent diplopia, gene ralized weakness. Acetylcholine receptor antibodies not present on prior testing. 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 Updated MRI with no changes. Due to vision changes and signs and symptoms consistent with seronegative myasthenia patient was recommended for repetitive stimulation EMG. Due to self reported icepack test response he was started on Mestinon 30 mg 3 times daily. This is continued on admit Continue armodafinil does not appear to be in a "myasthenia crisis" (6) Adrenal insufficiency: Adrenal insufficiency - Chronically on steroids for history of psoriatic arthritis Continue prednisone 40mg daily - he is slowly weaning this by 1-2mg each week no signs of adrenal crisis (7) Hyperlipemia: Continue statin (8) Hypertension: Losartan held for BRODIE spironolactone held for BRODIE/hyperkalemia cont to hold both - resume at d/c (9) Diastolic CHF: compensated but would stop IV fluids tonight (10) Anxiety and depression: Continue bupropion Continue lexapro (11) GERD (gastroesophageal reflux disease): PPI cause of chest pain?? consider d/c pepcid and changing to protonix at d/c (12) Psoriatic arthritis: Psoriatic arthritis Steroids as noted above Plan DVT proph- SC Heparin monitor overnight home tomorrow if no recurrent chest symptoms Discharge Plan Discharge Items Patient Disposition: Home - Self-Care Reason For Visit: UNCONTROLLED DIABETES, CHEST PAIN Discharge Diagnosis: 1. chest pain - no evidence of heart attack; heart catheterization normal; CTA chest negative for PE or Aortic dissection 2. uncontrolled diabetes - improved 3. acute kidney injury - resolved 4. hyperkalemia - resolved 5. evidence of old embolization of kyphoplasty cement to the right lower lobe pulmonary arterial tree 6. psoriatic arthritis on prednisone Activity: Per Instructions section Exercise/Sports: Wait until after follow-up appointment Driving/Machine Use: Resume 3 days after discharge Non-emergency contact: Primary Care Provider Call non-emergency contact if: you have any medication questions and your symptoms worsen Follow-up/Referrals: Pro,Elijah Hawkins MD [Primary Care Provider] - (1 week ) Diet: Carb Consistent or DM2 and Heart Healthy Addtl Attending Provider Instructions: Dr Ramos, You were hospitalized due to episodes of chest pain as well as very high blood sugars. Blood work for the heart was negative for heart attack. Roosevelt Barnhart performed a heart catheterization. All coronary arteries were normal except for a small vessel with only 20% narrowing in it. Thus, the catheterization was nearly completely normal. Your chest pain was NOT from coronary disease. CTA of the chest did NOT show aortic dissection, pneumonia, fluid, or pulmonary emboli. It did show at the bottom of the right lung embolization of kyphoplasty cement to the arteries in this region. There is nothing to do at this time, and it is unlikely to be related to your presenting symptoms of chest pain. It is uncertain what caused your chest pains. Perhaps it is gastrointestinal related (esophagus?) given the large quantity of prednisone you are currently taking. If the pains return please consider seeing a GI physician for consideration of upper endoscopy. At this time your blood sugars are under very good control. Please note that we are utilizing smaller amounts of insulin than what you typically take at home. You will have to use your best judgement regarding your insulins. We discussed use of once daily NPH insulin to control your sugars better in the setting of chronic prednisone use. I would start with 10 units of NPH insulin once daily each morning. You potentially could need as much as 15-20 units of NPH. Again I would start with [address] Mejia within a week. Finally, it is ok to resume your losartan and spironolactone. You can start back the losartan today and the spironolactone tomorrow morning. It was our pleasure to care for you! Addtl Graphic Art Technician Provider Instructions: ACTIVITY RECOMMENDATIONS following your heart catheterization: It is common to feel weak and fatigue for a few days. * Do not drive or operate any motorized equipment for the next three days. * Limit stair usage (2 or 3 trips a day only) for the next three days. * Do not lift anything heavier than 10 pounds for the next three days. * Do not engage in vigorous exercise or any sports until you see your family doctor.. * You may shower the day after your procedure, but do not immerse the RIGHT WRIST for three days. Thus, no tub baths, swimming, or doing dishes. Cleanse the site gently with soap and water. SPECIAL CARE INSTRUCTIONS: * You may replace the pressure dressing or band-aid the morning after the procedure. * After your procedure, it is normal to have a small bruise or small lump at the site. Examine your site daily for any change in the bruise or lump, redness, swelling, drainage or numbness. Notify your doctor if any change. BLEEDING: * If there is a small amount of bleeding at the site, lie down and apply firm pressure with a clean cloth for ten minutes. When the bleeding stops, lie quietly keeping the procedure limb straight for six hours. Notify your doctor as soon as possible. * If the bleeding does not stop after ten minutes or if there is a large amount of bleeding or spurting, call 911 immediately. Continue to lie down and hold firm pressure until help arrives. SKIN IRRITATION: * You may experience some redness and/or swelling in the area where radiation was administered. If any skin irritation occurs, please contact your family physician. Pending Studies at Discharge: No Stand-Alone Forms: My [facility] [employer], Smoking Cessation Medications and DC Order Prescriptions: New Humulin N NPH U-100 Insulin 100 unit/mL suspension 10 unit subcut QAM Qty: 10 0RF Continued ibuprofen 400 mg tablet 400 mg PO Q8H PRN (Reason: Pain) armodafinil [Nuvigil] 150 mg tablet 150 mg PO BID Qty: 180 2RF insulin aspart U-100 [Novolog U-100 Insulin aspart] 100 unit/mL solution 20 unit subcut TID Rx Instructions: before meals Jardiance 25 mg tablet 25 mg PO QAM pyridostigmine bromide 60 mg tablet 30 mg PO TID Qty: 90 1RF (DME) BiPap Machine Misc .Route Qty: 1 0RF Rx Instructions: 18/14 cmH2O, mask fit patient comfort, heated modification, compliance download capabilities, DME of patient choice insulin degludec [Tresiba FlexTouch U-100] 100 unit/mL (3 mL) insulin pen 60 unit subcut QAM escitalopram oxalate 20 mg tablet 20 mg PO QAM Qty: 90 bupropion HCl 150 mg tablet sustained-release 12 hr 300 mg PO QAM Qty: 180 rosuvastatin 40 mg tablet 40 mg PO QAM Qty: 90 famotidine [Pepcid] 40 mg tablet 40 mg PO QAM fexofenadine [Jessie Allergy] 180 mg tablet 180 mg PO QAM cholecalciferol (vitamin D3) 5,000 unit capsule 5,000 units PO QAM losartan 100 mg tablet 100 mg PO QAM furosemide 40 mg tablet 40 mg PO DAILY PRN (Reason: Edema) fluconazole 200 mg Tablet 200 mg PO DAILY PRN (Reason: yeast infection) potassium chloride 20 mEq tablet extended release 20 meq PO DAILY PRN (Reason: if taking lasix) prednisone 10 mg tablet 40 mg PO QAM spironolactone 25 mg tablet 25 mg PO QAM Orencia 125 mg/mL syringe 125 mg SUBCUT WK Rx Instructions: saturdays Discharge Orders: Discharge Order (Routine); Ordered 12/09/22 Ordered By: Raji Manrique Admission Data Admit Date/Time: 12/07/22 18:01 Attending Provider: Raji Manrique Admit Provider: Roberto Dubois Primary Care Provider: Elijah Mejia Other Providers: Roberto Dubois ; Adrian Higginbotham Coding Diagnoses Hyperosmolar hyperglycemic state (HHS) E11.00 Stable angina I20.89 Diabetes mellitus E11.9 BRODIE (acute kidney injury) N17.9 Cerebral vascular malformation Q28.3 Adrenal insufficiency E27.40 Hyperlipemia E78.5 Hypertension I10 Diastolic CHF I50.30 Anxiety and depression F41.9; F32.9 GERD (gastroesophageal reflux disease) K21.9 Psoriatic arthritis L40.50
== END 2022-12-09 17:55 | disposition home or self-care (01) | DRG 638 ==
LOC: ED 13:45 → SUATTDRO 18:01 → EDINP 18:01 → 2S 12-08 05:46